=== PATIENT | male | born 1955 | race Caucasian/White ===

== ENCOUNTER 2019-01-30 23:37 | Inpatient (IN) ==
--- NOTE | 2019-01-30 23:55 | Emergency Department Note ---
Disposition Clinical Impression: Acute exacerbation of chronic obstructive airways disease, Hyperammonemia, Pneumonia, Sepsis Fever Qualifiers: Fever type: unspecified Qualified Code(s): R50.9 - Fever, unspecified CHF (congestive heart failure) Qualifiers: Heart failure type: unspecified Heart failure chronicity: acute Qualified Code(s): I50.9 - Heart failure, unspecified Disposition: Still a Patient Condition: Fair Time of Disposition: 04:32 SOB HPI - General Chief Complaint: ED Shortness of Breath/Dyspnea Stated Complaint: sob Time Seen by Provider: 01/30/19 23:46 Source: EMS Mode of arrival: EMS Limitations: no limitations Nursing Notes Reviewed: Yes Vital Signs Reviewed: Yes - History of Present Illness 63-year-old male patient presents to the emergency room for evaluation of Atrial fibrillation with RVR. Upon arrival it was noted that he had a fever of 103 degrees. He states he has been short of breath. He has been a patient at the [facility] and it was necessary to send him here to be further evaluated. Pt Subjective Complaint: shortness of breath, cough Severity: moderate Consistency/Duration: constant Improves with: oxygen, rest, bronchodilators Worsens with: lying flat, exertion Known history of: COPD, diabetes, other (No history of congestive heart failure but there is a family history he states) Associated symptoms: Reports: fever, cough, wheezing, orthopnea, palpitations. Denies: chest pain, sputum production Treatment prior to arrival: oxygen Cough present: Yes Cough Frequency: Intermittent Sputum production: No Sputum Amount: None - Related Data Home oxygen amount: none Home Medications Medication Instructions Recorded Confirmed Allopurinol [Zyloprim] 300 mg PO DAILY 01/31/19 01/31/19 Apixaban [Eliquis] 5 mg PO BID 01/31/19 01/31/19 Budesonide/Formoterol 160/4.5 1 puff IH BID 01/31/19 01/31/19 [Symbicort 160/4.5] Cholecalciferol (Vitamin D3) 2,000 unit PO DAILY 01/31/19 01/31/19 [Vitamin D] Docusate [Colace] 100 mg PO BID PRN 01/31/19 01/31/19 Insulin ASPART [NovoLOG] 2 - 10 unit SQ TIDWM 01/31/19 01/31/19 Insulin Glargine 74 unit SQ DAILY 01/31/19 01/31/19 Lisinopril [Zestril] 10 mg PO DAILY 01/31/19 01/31/19 Porum Oral Soln [Porum] 450 mg PO BID 01/31/19 01/31/19 Loratadine [Allergy Relief] 10 mg PO DAILY 01/31/19 01/31/19 Melatonin 5 mg PO HS PRN 01/31/19 01/31/19 Metoprolol [Lopressor] 12.5 mg PO BID 01/31/19 01/31/19 Montelukast [Singulair] 10 mg PO DAILY 01/31/19 01/31/19 Coulter-3/Dha/Epa/Fish Oil [Sv Fish 2 each PO BID 01/31/19 01/31/19 Oil 1,000 mg Softgel] Paliperidone 156 mg IM Q28D 01/31/19 01/31/19 Pravastatin Sodium 40 mg PO HS 01/31/19 01/31/19 Tiotropium [Spiriva] 18 mcg IH 0700 01/31/19 01/31/19 Zolpidem [Ambien] 5 mg PO HS 01/31/19 01/31/19 dilTIAZem HCl [Cardizem] 180 mg PO QID 01/31/19 01/31/19 hydrOXYzine HCl [Hydroxyzine HCl] 50 mg PO TID PRN 01/31/19 01/31/19 levOCARNitine [Levocarnitine] 660 mg PO BID 01/31/19 01/31/19 Allergies Allergy/AdvReac Type Severity Reaction Status Date / Time No Known Allergies Allergy Verified 01/31/19 00:55 All systems ED: reviewed and negative except as stated. Constitutional: Reports: fever, weakness. Denies: chills, weight change Eyes: Denies: eye pain, eye discharge, vision change ENT ED: Denies: ear pain, throat pain, dental pain, hearing loss, epistaxis, congestion, dysphagia Cardiovascular: Reports: palpitations. Denies: chest pain, dyspnea on exertion, edema, syncope Respiratory: Reports: cough, dyspnea, wheezes. Denies: hemoptysis, stridor Gastrointestinal: Denies: abdominal pain, nausea, vomiting, diarrhea, constipation, hematemesis, melena, hematochezia Genitourinary: Denies: urgency, dysuria, frequency, hematuria Musculoskeletal: Denies: back pain, neck pain, arthralgia, myalgia Integumentary: Denies: rash, abrasion, lesions Neurological: Denies: headache, weakness, numbness, paresthesias, confusion, abnormal gait, vertigo Psychiatric: Denies: anxiety, depression, suicidal thoughts, homicidal thoughts, auditory hallucinations, visual hallucinations Endocrine: Denies: fatigue Hematological/Lymphatic: Denies: easy bleeding, easy bruising Allergic/Immunologic: Denies: facial swelling, urticaria Past Medical History - Past Medical History Attestation: Yes The following information was validated with the patient. Source: patient, old records reviewed, nursing notes reviewed Medical history: Reports: atrial fibrillation, COPD Psychiatric history: Reports: schizophrenia - Social History Smoking Status: Current every day smoker Alcohol use: Reports: none Drug use: Reports: none Physical Exam - General Limitations: no limitations General appearance: alert, in distress (Mild to moderate), obese - Head Head exam: atraumatic, normocephalic, normal inspection - Eye Eye exam: Present: normal appearance, PERRL, EOMI - Expanded Eye Exam Pupils: Left: reactive - ENT ENT exam: normal exam, normal oropharynx, mucous membranes dry, TM's normal bilaterally - Expanded ENT Exam External ear exam: Present: normal external inspection. Absent: auricular hematoma, auricular trauma TM/Canal: Hemotympanum: Negative, Erythema: Negative, Bulging: Negative, Effusion: Negative Mouth exam: Present: normal external inspection Teeth exam: Present: normal inspection Throat exam: Present: normal inspection - Neck Neck exam: Present: normal inspection, full ROM, trachea midline - Chest Chest inspection: Present: normal inspection, symmetric chest wall rise - Respiratory Respiratory exam: Present: respiratory distress, wheezes, other (Rales, bilaterally) - Cardiovascular Cardiovascular exam: Present: irregular rhythm - Abdominal Exam Abdominal exam: Present: soft, Non-Tender, normal bowel sounds. Absent: tenderness, distention, guarding, rebound, rigidity - Extremities Exam Extremities exam: Present: normal inspection, full ROM, normal capillary refill, pedal edema (2+), other (2+ pedal edema). Absent: tenderness - Expanded Upper Extremity Exam Shoulder exam: Present: normal inspection, full ROM. Absent: tenderness, swelling Arm exam: Present: normal inspection, full ROM. Absent: tenderness, swelling Elbow exam: Present: normal inspection, full ROM. Absent: tenderness, swelling Forearm/Wrist exam: Present: normal inspection, full ROM. Absent: tenderness, swelling Hand exam: Present: normal inspection, full ROM. Absent: tenderness, swelling Vascular exam: Normal: capillary refill, radial pulse - Expanded Lower Extremity Exam Hip/Pelvis exam: Present: normal inspection, full ROM. Absent: tenderness Upper leg exam: Present: normal inspection, full ROM. Absent: tenderness Knee exam: Present: normal inspection, full ROM. Absent: tenderness Lower leg exam: Present: normal inspection, full ROM. Absent: tenderness, Homans' sign Ankle exam: Present: normal inspection, full ROM. Absent: tenderness Foot/toe exam: Present: normal inspection, full ROM. Absent: tenderness Neurovascular/Tendon exam: Present: normal capillary refill. Absent: pulse deficit, motor deficit, sensory deficit, tendon deficit - Back Exam Back exam: Present: normal inspection, full ROM. Absent: tenderness, CVA tenderness (R), CVA tenderness (L) - Neurological Exam Neurological exam: Present: alert, oriented X3, CN II-XII intact - Expanded Neurological Exam Patient oriented to: Present: person, place, time Coma Scale Eye Opening: Spontaneous Coma Scale Motor Response: Obeys Commands Coma Scale Verbal Response: Oriented Coma Scale Total: 15 - Psychiatric Psychiatric exam: Present: normal affect, normal mood - Skin Skin exam: Present: warm, dry, intact, normal color Course Course Narrative: Placed in examination room. H&P obtained. Nurse notes reviewed. Patient has been sepsis criteria. Patient is in atrial fibrillation with RVR. However, he does have a fever of 103 I will treat his fever first provide him with normal saline bolus based on his ideal body weight of 89 kg Patient will be given a total of 3 L. An initial 2000 mL bolus followed by 126 mL an hour drip. Patient was given 1 g of Tylenol orally. I we will reassess his heart rate at that time decide whether or not to give Cardizem IV. - Reevaluation(s) Reevaluation #1: Patient is feeling some better. However, I feel he is having increased work of breathing. I have treated his fever and initially started some IV fluid as he looked clinically dry however I feel, reexamination he does have 2-3+ pitting edema there are some rales now present that were not audible prior secondary to the wheezing. I will start him on BiPAP and this is to help with the congestive heart failure. A Pang was inserted. This was inserted for strict I's and O's. Patient also had an ammonia level obtained. Chest x-ray was reviewed which did show no obvious infiltrate but did show some cephalization of flow consistent with congestive heart failure. However, [facility] is not currently taking any diuretics. Zosyn and vancomycin were started secondary to systemic inflammatory response syndrome. Time: 01:15 Reevaluation #2: Patient has continued to diurese. BiPAP has helped him. Cardizem was given and his heart rate is slowly improving as well as his blood pressure has continued to improve. His blood pressure did drop down to 99 systolic however I feel this is secondary to atrial fibrillation with RVR. Patient was given Zosyn and vancomycin. CTA is pending. Time: 02:29 Reevaluation #3: Pt declined a central line @ 0407 I will continue to monitor his Blood Pressure. Time: 04:07 - Consultations Consultation #1: I spoke to the hospitalist Dr. Amador When I had initialy paged the patient's blood pressure was 105 systolic. However, during the interim his BP has waxed and waned between 95 systolic and 105 Pt did have a reading that was low @ 81 systolic. We had decided to stop the Cardizem and switched to Amiodorone. Prior to stopping Cardizem his BP improved to 97 systolic and on manual it was 105 systolic. Pt does take Porum but was confirmed that he only had one dose, as it was just started. Therefore, Amiodorone was started (bolus and gtt). Time: 03:47 Consultation #2: Hospitalist was agreeable to admit the patient to the hospital. Patient was admitted to the ICU. Once again the patient refused the BiPAP here and one to taken off. However he did tolerate it well and I feel that did improve his clinical condition. Cardizem could be affecting his blood pressure some. After it was stopped and switched him to room his blood pressure did improve however he was given a 1000 mL bolus in addition to the original 1000 mL bolus. We provided him with judicious hydration but very cautious at same time secondary to his volume status. I did speak with the patient on multiple occasions he stated his legs and been swollen like this for a long long time and is very possible this could be secondary to diabetes (as patient felt that it could be as he was told this in the past. ) but I feel that it more than that. Time: 04:03 Vital Signs Temperature 103.2 F H 01/30/19 23:44 Pulse Rate 145 01/30/19 23:44 Respiratory Rate 16 01/30/19 23:44 Blood Pressure 123/97 01/30/19 23:44 O2 Sat by Pulse Oximetry 97 01/30/19 23:44 Temperature 98.9 F 01/31/19 03:30 Pulse Rate 101 01/31/19 05:15 Respiratory Rate 22 01/31/19 05:15 Blood Pressure 126/66 01/31/19 05:15 O2 Sat by Pulse Oximetry 97 01/31/19 05:15 Oxygen Delivery Oxygen Delivery Nasal Cannula Shortness of Breath/Dyspnea - MDM Narrative Medical decision making narrative: Patient's blood pressure did improve into the 120 systolic range. He remained awake alert and oriented. Patient was admitted to the ICU. They will be continually monitored. If required pressors can be given specifically levophed for 24 hours. - Medical Records Medical records reviewed: Yes I reviewed the patient's medical records. - Lab Data Lab results reviewed: Yes I reviewed the patient's lab results. Result diagrams: 01/30/19 23:55 01/30/19 00:00 Lab Results 01/30/19 01/30/19 01/30/19 Range/Units 00:00 00:00 00:00 WBC (4.3-11.1) K/mcL RBC (4.19-5.50) M/mcL Hgb (12.9-16.9) g/dL Hct (37.5-50.1) % MCV (83.0-100.0) fL MCH (28.0-33.3) pg MCHC (31.6-35.5) g/dL RDW (11.5-14.5) % Plt Count (140-400) K/mcL MPV (9.4-12.4) fL Immature Gran % (0-4) % Seg Neutrophils % % Lymphocytes % % Monocytes % % Eosinophils % % Basophils % % Neutrophils # (1.6-8.9) K/mcL Lymphocytes # (0.6-4.6) K/mcL Monocytes # (0.0-1.3) K/mcL Eosinophils # (0.0-0.6) K/mcL Basophils # (0.0-0.2) K/mcL Platelet Estimate (Normal) Immature Plt Fraction (1.1-6.1) % PT 12.5 H (9.4-12.1) Seconds INR 1.1 APTT 31.7 (26.0-36.0) Seconds Sample Site ABG pH (7.32-7.45) pH Units ABG pCO2 (35-45) mmHg ABG pO2 (85-104) mmHg ABG HCO3 (21-27) mEq/L ABG Total CO2 (20-26) mEq/L ABG O2 Saturation (95-98) % ABG Base Excess (-2 to 3) mEq/L Yunier Test O2 Delivery Device Inspired O2 (1-15=lpm [id number]=%) Sodium 134 L (136-145) mEq/L Potassium 5.2 H (3.5-5.1) mEq/L Chloride 100 (98-107) mEq/L Carbon Dioxide 24 (23-29) mEq/L BUN 21 (8-23) mg/dL Creatinine 1.21 (0.70-1.30) mg/dL Est GFR ( Amer) > 60 (> 60) Est GFR (Non-Af Amer) > 60 (> 60) BUN/Creatinine Ratio 17 (6-26) Glucose 265 H (70-105) mg/dL Calculated Osmolality 290 (280-300) Lactic Acid (0.5-2.2) mmol/L Calcium 9.9 (8.6-10.3) mg/dL Phosphorus 2.2 L (2.7-4.5) mg/dL Magnesium 1.7 (1.6-2.6) mg/dL Total Bilirubin 0.7 (0.3-1.0) mg/dL Direct Bilirubin 0.2 (0.0-0.2) mg/dL Indirect Bilirubin 0.5 (0.0-1.2) mg/dL AST 14 (13-39) Units/L ALT 14 (7-52) Units/L Alkaline Phosphatase 57 (34-104) Units/L Ammonia (16-53) mcmol/L Troponin I < 0.03 (< 0.04) ng/mL B-Natriuretic Peptide 40 (Less than 100) pg/mL Serum Total Protein 7.1 (6.4-8.9) g/dL Albumin 4.4 (3.5-5.7) g/dL Globulin 2.7 (2.4-3.5) g/dL Albumin/Globulin Ratio 1.6 (1.1-2.2) Urine Color (Yellow) Urine Clarity (Clear) Urine pH (5.0-8.0) pH Units Ur Specific [place] (1.010-1.025) Urine Protein (Neg-Trace) mg/dL Urine Glucose (UA) (Normal) mg/dL Urine Ketones (Negative) mg/dL Urine Blood (Negative) Urine Nitrite (Negative) Urine Bilirubin (Negative) Urine Urobilinogen (Normal) mg/dL Ur Leukocyte Esterase (Negative) Ur Culture Indicated? (NO) Valproic Acid (50-100) mcg/mL Porum (0.6-1.2) mEq/L 01/30/19 01/31/19 01/31/19 Range/Units 23:55 00:54 01:00 WBC 12.4 H (4.3-11.1) K/mcL RBC 5.05 (4.19-5.50) M/mcL Hgb 15.9 (12.9-16.9) g/dL Hct 46.5 (37.5-50.1) % MCV 92.1 (83.0-100.0) fL MCH 31.5 (28.0-33.3) pg MCHC 34.2 (31.6-35.5) g/dL RDW 13.2 (11.5-14.5) % Plt Count 96 L (140-400) K/mcL MPV 8.9 L (9.4-12.4) fL Immature Gran % 0.4 (0-4) % Seg Neutrophils % 82.7 % Lymphocytes % 8.2 % Monocytes % 8.3 % Eosinophils % 0.2 % Basophils % 0.2 % Neutrophils # 10.3 H (1.6-8.9) K/mcL Lymphocytes # 1.0 (0.6-4.6) K/mcL Monocytes # 1.0 (0.0-1.3) K/mcL Eosinophils # 0.0 (0.0-0.6) K/mcL Basophils # 0.0 (0.0-0.2) K/mcL Platelet Estimate Decreased L (Normal) Immature Plt Fraction 1.6 (1.1-6.1) % PT (9.4-12.1) Seconds INR APTT (26.0-36.0) Seconds Sample Site R Radial ABG pH 7.43 (7.32-7.45) pH Units ABG pCO2 38 (35-45) mmHg ABG pO2 74 L (85-104) mmHg ABG HCO3 25 (21-27) mEq/L ABG Total CO2 26 (20-26) mEq/L ABG O2 Saturation 95 (95-98) % ABG Base Excess 1 (-2 to 3) mEq/L Yunier Test N/A O2 Delivery Device Cannula Inspired O2 3.0 (1-15=lpm [id number]=%) Sodium (136-145) mEq/L Potassium (3.5-5.1) mEq/L Chloride (98-107) mEq/L Carbon Dioxide (23-29) mEq/L BUN (8-23) mg/dL Creatinine (0.70-1.30) mg/dL Est GFR ( Amer) (> 60) Est GFR (Non-Af Amer) (> 60) BUN/Creatinine Ratio (6-26) Glucose (70-105) mg/dL Calculated Osmolality (280-300) Lactic Acid (0.5-2.2) mmol/L Calcium (8.6-10.3) mg/dL Phosphorus (2.7-4.5) mg/dL Magnesium (1.6-2.6) mg/dL Total Bilirubin (0.3-1.0) mg/dL Direct Bilirubin (0.0-0.2) mg/dL Indirect Bilirubin (0.0-1.2) mg/dL AST (13-39) Units/L ALT (7-52) Units/L Alkaline Phosphatase (34-104) Units/L Ammonia (16-53) mcmol/L Troponin I (< 0.04) ng/mL B-Natriuretic Peptide (Less than 100) pg/mL Serum Total Protein (6.4-8.9) g/dL Albumin (3.5-5.7) g/dL Globulin (2.4-3.5) g/dL Albumin/Globulin Ratio (1.1-2.2) Urine Color Yellow (Yellow) Urine Clarity Clear (Clear) Urine pH 7.0 (5.0-8.0) pH Units Ur Specific [place] 1.017 (1.010-1.025) Urine Protein Trace (Neg-Trace) mg/dL Urine Glucose (UA) 100 H (Normal) mg/dL Urine Ketones Trace H (Negative) mg/dL Urine Blood Negative (Negative) Urine Nitrite Negative (Negative) Urine Bilirubin Negative (Negative) Urine Urobilinogen Normal (Normal) mg/dL Ur Leukocyte Esterase Negative (Negative) Ur Culture Indicated? NO (NO) Valproic Acid (50-100) mcg/mL Porum (0.6-1.2) mEq/L 01/31/19 01/31/19 01/31/19 Range/Units 01:13 01:13 01:13 WBC (4.3-11.1) K/mcL RBC (4.19-5.50) M/mcL Hgb (12.9-16.9) g/dL Hct (37.5-50.1) % MCV (83.0-100.0) fL MCH (28.0-33.3) pg MCHC (31.6-35.5) g/dL RDW (11.5-14.5) % Plt Count (140-400) K/mcL MPV (9.4-12.4) fL Immature Gran % (0-4) % Seg Neutrophils % % Lymphocytes % % Monocytes % % Eosinophils % % Basophils % % Neutrophils # (1.6-8.9) K/mcL Lymphocytes # (0.6-4.6) K/mcL Monocytes # (0.0-1.3) K/mcL Eosinophils # (0.0-0.6) K/mcL Basophils # (0.0-0.2) K/mcL Platelet Estimate (Normal) Immature Plt Fraction (1.1-6.1) % PT (9.4-12.1) Seconds INR APTT (26.0-36.0) Seconds Sample Site ABG pH (7.32-7.45) pH Units ABG pCO2 (35-45) mmHg ABG pO2 (85-104) mmHg ABG HCO3 (21-27) mEq/L ABG Total CO2 (20-26) mEq/L ABG O2 Saturation (95-98) % ABG Base Excess (-2 to 3) mEq/L Yunier Test O2 Delivery Device Inspired O2 (1-15=lpm [id number]=%) Sodium (136-145) mEq/L Potassium (3.5-5.1) mEq/L Chloride (98-107) mEq/L Carbon Dioxide (23-29) mEq/L BUN (8-23) mg/dL Creatinine (0.70-1.30) mg/dL Est GFR ( Amer) (> 60) Est GFR (Non-Af Amer) (> 60) BUN/Creatinine Ratio (6-26) Glucose (70-105) mg/dL Calculated Osmolality (280-300) Lactic Acid 2.7 H (0.5-2.2) mmol/L Calcium (8.6-10.3) mg/dL Phosphorus (2.7-4.5) mg/dL Magnesium (1.6-2.6) mg/dL Total Bilirubin (0.3-1.0) mg/dL Direct Bilirubin (0.0-0.2) mg/dL Indirect Bilirubin (0.0-1.2) mg/dL AST (13-39) Units/L ALT (7-52) Units/L Alkaline Phosphatase (34-104) Units/L Ammonia 65 H (16-53) mcmol/L Troponin I (< 0.04) ng/mL B-Natriuretic Peptide (Less than 100) pg/mL Serum Total Protein (6.4-8.9) g/dL Albumin (3.5-5.7) g/dL Globulin (2.4-3.5) g/dL Albumin/Globulin Ratio (1.1-2.2) Urine Color (Yellow) Urine Clarity (Clear) Urine pH (5.0-8.0) pH Units Ur Specific [place] (1.010-1.025) Urine Protein (Neg-Trace) mg/dL Urine Glucose (UA) (Normal) mg/dL Urine Ketones (Negative) mg/dL Urine Blood (Negative) Urine Nitrite (Negative) Urine Bilirubin (Negative) Urine Urobilinogen (Normal) mg/dL Ur Leukocyte Esterase (Negative) Ur Culture Indicated? (NO) Valproic Acid (50-100) mcg/mL Porum 0.6 (0.6-1.2) mEq/L 01/31/19 Range/Units 01:13 WBC (4.3-11.1) K/mcL RBC (4.19-5.50) M/mcL Hgb (12.9-16.9) g/dL Hct (37.5-50.1) % MCV (83.0-100.0) fL MCH (28.0-33.3) pg MCHC (31.6-35.5) g/dL RDW (11.5-14.5) % Plt Count (140-400) K/mcL MPV (9.4-12.4) fL Immature Gran % (0-4) % Seg Neutrophils % % Lymphocytes % % Monocytes % % Eosinophils % % Basophils % % Neutrophils # (1.6-8.9) K/mcL Lymphocytes # (0.6-4.6) K/mcL Monocytes # (0.0-1.3) K/mcL Eosinophils # (0.0-0.6) K/mcL Basophils # (0.0-0.2) K/mcL Platelet Estimate (Normal) Immature Plt Fraction (1.1-6.1) % PT (9.4-12.1) Seconds INR APTT (26.0-36.0) Seconds Sample Site ABG pH (7.32-7.45) pH Units ABG pCO2 (35-45) mmHg ABG pO2 (85-104) mmHg ABG HCO3 (21-27) mEq/L ABG Total CO2 (20-26) mEq/L ABG O2 Saturation (95-98) % ABG Base Excess (-2 to 3) mEq/L Yunier Test O2 Delivery Device Inspired O2 (1-15=lpm [id number]=%) Sodium (136-145) mEq/L Potassium (3.5-5.1) mEq/L Chloride (98-107) mEq/L Carbon Dioxide (23-29) mEq/L BUN (8-23) mg/dL Creatinine (0.70-1.30) mg/dL Est GFR ( Amer) (> 60) Est GFR (Non-Af Amer) (> 60) BUN/Creatinine Ratio (6-26) Glucose (70-105) mg/dL Calculated Osmolality (280-300) Lactic Acid (0.5-2.2) mmol/L Calcium (8.6-10.3) mg/dL Phosphorus (2.7-4.5) mg/dL Magnesium (1.6-2.6) mg/dL Total Bilirubin (0.3-1.0) mg/dL Direct Bilirubin (0.0-0.2) mg/dL Indirect Bilirubin (0.0-1.2) mg/dL AST (13-39) Units/L ALT (7-52) Units/L Alkaline Phosphatase (34-104) Units/L Ammonia (16-53) mcmol/L Troponin I (< 0.04) ng/mL B-Natriuretic Peptide (Less than 100) pg/mL Serum Total Protein (6.4-8.9) g/dL Albumin (3.5-5.7) g/dL Globulin (2.4-3.5) g/dL Albumin/Globulin Ratio (1.1-2.2) Urine Color (Yellow) Urine Clarity (Clear) Urine pH (5.0-8.0) pH Units Ur Specific [place] (1.010-1.025) Urine Protein (Neg-Trace) mg/dL Urine Glucose (UA) (Normal) mg/dL Urine Ketones (Negative) mg/dL Urine Blood (Negative) Urine Nitrite (Negative) Urine Bilirubin (Negative) Urine Urobilinogen (Normal) mg/dL Ur Leukocyte Esterase (Negative) Ur Culture Indicated? (NO) Valproic Acid 91 (50-100) mcg/mL Porum (0.6-1.2) mEq/L - Radiology Data Radiology results reviewed: Yes I reviewed the patient's radiology results. - EKG Data EKG attestation: Yes I reviewed and interpreted this EKG. EKG results narrative: EKG is reviewed and interpreted by me shows an atrial fibrillation with rapid ventricular response at 153 bpm, left axis, normal QRS duration, no acute ST elevations. Critical Care Time Critical Care Time: Yes Total Critical Care Time: 45 Attestation: The high probability of a clinically significant, sudden or life threatening deterioration of the patient's condition required my full and direct attention, intervention and personal management.
[2019-01-30] MEDS ORDERED: Levalbuterol Neb 1.25 MG/3 ML IH STA (23:58)
[2019-01-31] MEDS: 0.9 % Sodium Chloride 1,000 ML IVC SCH ×2 (00:42→02:51)
[2019-01-31 00:43] LABS: Basophils % 0.2 %; Eosinophils % 0.2 %; Mean Corpuscular Volume 92.1 fL (83.0-100.0)
[2019-01-31 00:45] LABS: Hematocrit 46.5 % (37.5-50.1); Hemoglobin 15.9 g/dL (12.9-16.9); Immature Granulocytes % 0.4 % (0-4); Immature Platelets 1.6 % (1.1-6.1); Lymphocytes % 8.2 %; Mean Corpuscular HGB Conc 34.2 g/dL (31.6-35.5); Mean Corpuscular Hemoglobin 31.5 pg (28.0-33.3); Mean Platelet Volume 8.9 fL (9.4-12.4); Monocytes % 8.3 %; Red Blood Count 5.05 M/mcL (4.19-5.50); Red Cell Distribution Width 13.2 % (11.5-14.5); Segmented Neutrophils % 82.7 %; White Blood Count 12.4 K/mcL (4.3-11.1)
[2019-01-31 00:49] LABS: Neutrophils # 10.3 K/mcL (1.6-8.9); Platelet Count 96 K/mcL (140-400)
[2019-01-31 00:57] LABS: ABG Base Excess 1 mEq/L (-2 to 3); ABG HCO3 25 mEq/L (21-27); ABG Oxygen Saturation 95 % (95-98); ABG PCO2 38 mmHg (35-45); ABG PH 7.43 pH Units (7.32-7.45); ABG PO2 74 mmHg (85-104); ABG TCO2 26 mEq/L (20-26)
[2019-01-31 01:06] LABS: Alanine Aminotransferase 14 Units/L (7-52); Albumin 4.4 g/dL (3.5-5.7); Albumin/Globulin Ratio 1.6 (1.1-2.2); Alkaline Phosphatase 57 Units/L (34-104); Aspartate Amino Transferase 14 Units/L (13-39); BUN/Creatinine Ratio 17 (6-26); Bilirubin,Direct 0.2 mg/dL (0.0-0.2); Bilirubin,Indirect 0.5 mg/dL (0.0-1.2); Bilirubin,Total 0.7 mg/dL (0.3-1.0); Blood Urea Nitrogen 21 mg/dL (8-23); Calcium 9.9 mg/dL (8.6-10.3); Carbon Dioxide 24 mEq/L (23-29); Chloride 100 mEq/L (98-107); Globulin 2.7 g/dL (2.4-3.5); Glucose 265 mg/dL (70-105); Magnesium 1.7 mg/dL (1.6-2.6); Osmolality,Calculated 290 (280-300); Phosphorous 2.2 mg/dL (2.7-4.5); Potassium 5.2 mEq/L (3.5-5.1); Sodium 134 mEq/L (136-145); Total Protein 7.1 g/dL (6.4-8.9); Troponin I < 0.03 ng/mL (< 0.04); eGFR For African Americans > 60 (> 60); eGFR For Non-African Americans > 60 (> 60)
[2019-01-31 01:14] LABS: INR 1.1; Prothrombin Time 12.5 Seconds (9.4-12.1)
[2019-01-31 01:15] LABS: Bilirubin,Urine Negative (Negative); Blood,Urine Negative (Negative); Clarity,Urine Clear (Clear); Color,Urine Yellow (Yellow); Glucose,Urine (UA) 100 mg/dL (Normal); Ketones,Urine Trace mg/dL (Negative); Leukocyte Esterase,Urine Negative (Negative); Nitrite,Urine Negative (Negative); Protein,Urine Trace mg/dL (Neg-Trace); Specific Gravity,Urine 1.017 (1.010-1.025); Urobilinogen,Urine Normal (Normal)
[2019-01-31 01:17] LABS: Activated Partial Thrombo Time 31.7 Seconds (26.0-36.0)
[2019-01-31] MEDS ORDERED: Piperacillin/Tazobactam 3.375 GM in 0.9 % Sodium Chloride Mini Bag 100 ML IVPB ONE (01:27)
[2019-01-31] MEDS ORDERED: Isovue-370 500 ML BOTTLE IVP ONE (01:31)
[2019-01-31 01:36] LABS: Platelet Estimate Decreased (Normal)
[2019-01-31] MEDS ORDERED: methylPREDNISolone 125 MG/2 ML VIAL IVP ONE (02:46)
[2019-01-31] MEDS ORDERED: 0.9 % Sodium Chloride 1,000 ML IVC ONE (03:29)
[2019-01-31] MEDS ORDERED: Amiodarone Premix 150 MG/100 ML BAG IVPB ONE (03:49)
[2019-01-31] MEDS ORDERED: Levalbuterol Neb 1.25 MG/3 ML IH STA (04:08)
[2019-01-31] MEDS ORDERED: Amiodarone Premix 360 MG/200 ML BAG IVC ONE (04:22)
[2019-01-31] MEDS ORDERED: Amiodarone Premix 360 MG/200 ML BAG IVC SCH ×2 (04:30→11:14)
[2019-01-31] MEDS ORDERED: Lactulose Oral Soln 20 GM/30 ML UDC PO ONE (05:00)
[2019-01-31] MEDS ORDERED: Naloxone 0.4 MG/ML INJ IVP PRN ×2 (05:03→11:14)
--- NOTE | 2019-01-31 05:05 | Internal Med History&Physical ---
<Lazaro Cherry - Last Filed: 01/31/19 05:36> Date of Encounter: 01/31/19 Time of Encounter: 04:50 Internal Medicine - H&P: HPI Admitted From: Home History of present illness: Mr. Gunderson is a 63 year old male past medical history of COPD, diabetes, hyper tension, atrial fibrillation, on metoprolol, Eliquis, lisinopril, insulin, diltiazem, and lithium, presenting to the [facility] ED for atrial or fibrillation with rapid ventricular response. Patient was also noted in the ED to be febrile to 103 degrees, he is medically to dyspnea, orthopnea and palpitations as well as nonproductive cough. Patient denies chest pain. Patient had appears to history of atrial fibrillation with RVR, is currently meeting sepsis criteria was given initial fluid bolus of 2 L, given Tylenol by mouth for fever and started on diltiazem drip. Patient was only minimally responsive to this medication as he was transferred to amiodarone, patient has r eceived 2 separate level albuterol nebulizers as well as steroids in the ED he was started on vancomycin and Zosyn due to sepsis. Patient was put on BiPAP as tolerated it poorly asked for the BiPAP to be removed. Patient started to have mildly elevated white count 12.4, mild hyponatremia at 134, mild hyperkalemia 5.2, glucose of 265, elevated lactic acid 2.7, hypophosphatemia 2.2, and hyperammonemia 65. Patient's vitals are currently stable with a heart rate of 101, borderline tachypnea at 22, BP of 126/66 saturating at 97% on 3 L via nasal cannula. Patient is currently refusing BiPAP and has refused central line after being offered by emergency attending physician in the ED. Assessment and plan: Atrial fibrillation with rapid ventricular response: Continue amiodarone drip Guarded IV fluid administration Echocardiogram Consult to cardiology Sepsis: Likely 2/2 pneumonia Patient received 2 L IV fluid administration Continue vancomycin/Zosyn Mildly elevated white count 12.4 Lactic acid initially 2.7-Time lactic acid Cautious fluid administration the setting of CHF Blood cultures pending. Hyperkalemia: Potassium at 5.2 Patient has received 2 nebulizers of levalbuterol Recheck BMP at 0600 hours Hyperglycemia: Low-dose sliding scale insulin regimen. Hyperammonemia: Lactulose Hypophosphatemia Phosphate level of 2.2 Replace with sodium phosphate DVT prophylaxis: Home dose Eliquis 5 mg by mouth twice a day Past Med Surg Social Fam HX - Past Medical History Medical history: atrial fibrillation, COPD Psychiatric history: schizophrenia - Social History Smoking Status: Current every day smoker Alcohol use: none Drug use: none Internal Medicine - H&P: Meds Allopurinol [Zyloprim] 300 mg PO DAILY 01/31/19 [History] Apixaban [Eliquis] 5 mg PO BID 01/31/19 [History] Budesonide/Formoterol 160/4.5 [Symbicort 160/4.5] 1 puff IH BID 01/31/19 [History] Cholecalciferol (Vitamin D3) [Vitamin D] 2,000 unit PO DAILY 01/31/19 [History] Docusate [Colace] 100 mg PO BID PRN 01/31/19 [History] Insulin ASPART [NovoLOG] 2 - 10 unit SQ TIDWM 01/31/19 [History] Insulin Glargine 74 unit SQ DAILY 01/31/19 [History] Lisinopril [Zestril] 10 mg PO DAILY 01/31/19 [History] [place] Oral Soln [[place]] 450 mg PO BID 01/31/19 [History] Loratadine [Allergy Relief] 10 mg PO DAILY 01/31/19 [History] Melatonin 5 mg PO HS PRN 01/31/19 [History] Metoprolol [Lopressor] 12.5 mg PO BID 01/31/19 [History] Montelukast [Singulair] 10 mg PO DAILY 01/31/19 [History] [place]-3/Dha/Epa/Fish Oil [Sv Fish Oil 1,000 mg Softgel] 2 each PO BID 01/31/19 [History] Paliperidone 156 mg IM Q28D 01/31/19 [History] Pravastatin Sodium 40 mg PO HS 01/31/19 [History] Tiotropium [Spiriva] 18 mcg IH 0700 01/31/19 [History] Zolpidem [Ambien] 5 mg PO HS 01/31/19 [History] dilTIAZem HCl [Cardizem] 180 mg PO QID 01/31/19 [History] hydrOXYzine HCl [Hydroxyzine HCl] 50 mg PO TID PRN 01/31/19 [History] levOCARNitine [Levocarnitine] 660 mg PO BID 01/31/19 [History] Allergy/AdvReac Type Severity Reaction Status Date / Time No Known Allergies Allergy Verified 01/31/19 00:55 All Systems PM: A 10-system review of systems was performed and is negative for pertinent findings except as documented above in the HPI. - Constitutional Constitutional: excessive sweating, fatigue, fever(s), lethargy, malaise, weakness - Cardiovascular Cardiovascular ROS IM: edema, no chest pain, no dyspnea, no lightheadedness, no syncope - Respiratory Respiratory: no dyspnea - Gastrointestinal Gastrointestinal: no abdominal pain, no nausea, no vomiting - Neurological Neurological ROS: weakness, no dizziness - Constitutional Vitals: Temp Pulse Resp BP Pulse Ox 98.9 F 102 22 113/75 98 01/31/19 03:30 01/31/19 04:45 01/31/19 04:45 01/31/19 04:45 01/31/19 04:45 General appearance: Present: disheveled, morbidly obese Exam: Upon my initial examination the patient is lying in the hospital bed with a fan on his face he is mildly diaphoretic and states that he feels that he is sweating, he is initially sleeping when I enter the room but is arousable to verbal stimuli. Patient appears to be awake and alert to his surroundings he is engageable to conversation and answers most questions appropriately, however it is noted that while the patient first appears to understand that he needs admission to the hospital for further management of CHF and sepsis, when asked if he has any questions he states that he would like to go home at 7:00 because he has to pick his daughter is at before they go to work. The patient does not appear to have consistent thought process and is noted be conversationally dyspneic although he states that he is not having any trouble breathing and denies all other review of systems questions. Patient is noted to be morbidly obese and disheveled, there is tobacco staining on his fingers and dye. C ardiopulmonary auscultation however is unremarkable, abdomen is soft nontender nondistended, there are no external signs of trauma peripheral pulses are intact in the distal extremities, there is significant notable 3+ pitting edema bilateral lower extremities which patient states is chronic. He has no other concerns or complaints at this time. - Head Head exam: Present: atraumatic, normal inspection - Respiratory Respiratory exam: Present: accessory muscle use, CTAB, prolonged expiratory phase - Cardiovascular Cardiovascular exam: Present: RRR, +S1, +S2. Absent: clicks, diastolic murmur, gallop, JVD, rubs, +S3, +S4, systolic murmur - GI/Abdominal GI/Abdominal exam: Present: normal bowel sounds, soft, no peritoneal signs. Absent: distended, firm, guarding, rebound, rigid, tenderness - Extremities Exam Extremities exam: Present: pedal edema (3+ pitting bilateral lower extremity edema). Absent: cyanotic, tenderness - Neurological Exam Neurological exam: Present: alert, no focal deficits. Absent: facial droop, speech deficit - Skin Skin exam: Present: diaphoretic, intact, normal color, warm. Absent: cyanosis, erythema Internal Med - H&P Results - Labs CBC & Chem 7: 01/30/19 23:55 01/30/19 00:00 Labs: Short CBC 01/30/19 Range/Units 23:55 WBC 12.4 H (4.3-11.1) K/mcL Hgb 15.9 (12.9-16.9) g/dL Hct 46.5 (37.5-50.1) % Plt Count 96 L (140-400) K/mcL Neutrophils # 10.3 H (1.6-8.9) K/mcL BMP 01/30/19 00:00 Sodium 134 L Potassium 5.2 H Chloride 100 Carbon Dioxide 24 BUN 21 Creatinine 1.21 Glucose 265 H Calcium 9.9 Cardiac Enzymes 01/30/19 Range/Units 00:00 Troponin I < 0.03 (< 0.04) ng/mL Liver Function 01/30/19 Range/Units 00:00 Total Bilirubin 0.7 (0.3-1.0) mg/dL Direct Bilirubin 0.2 (0.0-0.2) mg/dL AST 14 (13-39) Units/L ALT 14 (7-52) Units/L Alkaline Phosphatase 57 (34-104) Units/L Albumin 4.4 (3.5-5.7) g/dL Urine 01/31/19 Range/Units 01:00 Urine Color Yellow (Yellow) Urine Clarity Clear (Clear) Urine pH 7.0 (5.0-8.0) pH Units Ur Specific [place] 1.017 (1.010-1.025) Urine Protein Trace (Neg-Trace) mg/dL Urine Glucose (UA) 100 H (Normal) mg/dL - ABG Interpretation ABG results: 01/31/19 00:54 ABG pH 7.43 ABG pCO2 38 ABG pO2 74 L ABG HCO3 25 ABG Total CO2 26 ABG O2 Saturation 95 ABG Base Excess 1 - Impressions ITS Impressions Chest X-Ray 01/31/19 00:38 IMPRESSION: Negative limited low lung volume portable examination. D/ / Carmelo Flores MD / Carmelo Flores MD Interpreting Provider: Carmelo Flores MD Chest CTA 01/31/19 02:29 IMPRESSION: Negative for acute pulmonary embolism. Left lower lobe airspace disease, most suspicious for aspiration sequela given trace hyper airways secretions. Pneumonia is a differential consideration. Mild mediastinal and hilar lymphadenopathy is presumably reactive. Heterogeneous enlarged thyroid gland. Recommend nonemergent follow-up thyroid ultrasound, unless already performed elsewhere. D/ / Sudhir Zarate / Sudhir Zarate Interpreting Provider: Sudhir Zarate - Time Spent With Patient Total time spent is greater than 50% in coordination of care (as documented) at patient's floor/unit and/or counseling patient: <Hema Shell D - Last Filed: 01/31/19 08:19> Date of Encounter: 01/31/19 Internal Medicine - H&P: HPI History of present illness: Mr. Gunderson is a 63 year old male All Systems PM: A 10-system review of systems was performed and is negative for pertinent findings except as documented above in the HPI. - Constitutional Vitals: Temp Pulse Resp BP Pulse Ox 98.7 F 115 21 134/98 94 01/31/19 07:47 01/31/19 08:00 01/31/19 08:00 01/31/19 08:00 01/31/19 08:00 Internal Med - H&P Results - Labs CBC & Chem 7: 01/31/19 05:54 01/31/19 06:59 Labs: Short CBC 01/30/19 01/31/19 Range/Units 23:55 05:54 WBC 12.4 H 13.5 H (4.3-11.1) K/mcL Hgb 15.9 15.2 (12.9-16.9) g/dL Hct 46.5 45.4 (37.5-50.1) % Plt Count 96 L 87 L (140-400) K/mcL Neutrophils # 10.3 H 11.8 H (1.6-8.9) K/mcL BMP 01/30/19 01/31/19 00:00 06:59 Sodium 134 L 135 L Potassium 5.2 H 4.8 Chloride 100 103 Carbon Dioxide 24 24 BUN 21 20 Creatinine 1.21 1.09 Glucose 265 H 309 H Calcium 9.9 9.6 Cardiac Enzymes 01/30/19 Range/Units 00:00 Troponin I < 0.03 (< 0.04) ng/mL Liver Function 01/30/19 Range/Units 00:00 Total Bilirubin 0.7 (0.3-1.0) mg/dL Direct Bilirubin 0.2 (0.0-0.2) mg/dL AST 14 (13-39) Units/L ALT 14 (7-52) Units/L Alkaline Phosphatase 57 (34-104) Units/L Albumin 4.4 (3.5-5.7) g/dL Urine 01/31/19 Range/Units 01:00 Urine Color Yellow (Yellow) Urine Clarity Clear (Clear) Urine pH 7.0 (5.0-8.0) pH Units Ur Specific [place] 1.017 (1.010-1.025) Urine Protein Trace (Neg-Trace) mg/dL Urine Glucose (UA) 100 H (Normal) mg/dL - ABG Interpretation ABG results: 01/31/19 00:54 ABG pH 7.43 ABG pCO2 38 ABG pO2 74 L ABG HCO3 25 ABG Total CO2 26 ABG O2 Saturation 95 ABG Base Excess 1 - Impressions ITS Impressions Chest X-Ray 01/31/19 00:38 IMPRESSION: Negative limited low lung volume portable examination. D/ / Carmelo Flores MD / Carmelo Flores MD Interpreting Provider: Carmelo Flores MD Chest CTA 01/31/19 02:29 IMPRESSION: Negative for acute pulmonary embolism. Left lower lobe airspace disease, most suspicious for aspiration sequela given trace hyper airways secretions. Pneumonia is a differential consideration. Mild mediastinal and hilar lymphadenopathy is presumably reactive. Heterogeneous enlarged thyroid gland. Recommend nonemergent follow-up thyroid ultrasound, unless already performed elsewhere. D/ / Sudhir Zarate / Sudhir Zarate Interpreting Provider: Sudhir Zarate - Time Spent With Patient Total time spent is greater than 50% in coordination of care (as documented) at patient's floor/unit and/or counseling patient: - Attending Attestation I saw and evaluated the patient. I reviewed the residents note, performed my own physical examination and agree with findings and plan as documented in the residents note. Patient seen and examined on 01/31/19 at 620am. Patient presented with atrial fibrillation, possible pneumonia. History of diabetes and atrial fibrillation on eliquis. In ICU due to starting amiodarone. Will continue to monitor. Blood pressures initially low in ER but improved after fluid boluses. Echo in the morning, cardiology consultation. Continue IV antibiotics for pneumonia.
[2019-01-31] MEDS ORDERED: *HR* Dextrose 50 % in Water (Syg) 50 ML SYRINGE IVP PRN ×3 (05:33→11:14)
[2019-01-31] MEDS ORDERED: D5% in Water 1,000 ML IVC PRN ×3 (05:33→11:14)
[2019-01-31] MEDS ORDERED: Dextrose Gel 15 GM/37.5 ML TUBE PO PRN ×7 (05:33→11:14)
[2019-01-31] MEDS ORDERED: Insulin LISPRO 300 UNITS/3 ML VIAL SQ SCH ×4 (06:00→21:00)
[2019-01-31 06:16] LABS: Basophils % 0.1 %; Eosinophils % 0.1 %; Red Cell Distribution Width 13.2 % (11.5-14.5)
[2019-01-31 06:18] LABS: Hematocrit 45.4 % (37.5-50.1); Hemoglobin 15.2 g/dL (12.9-16.9); Immature Granulocytes % 0.7 % (0-4); Immature Platelets 1.7 % (1.1-6.1); Lymphocytes # 0.9 K/mcL (0.6-4.6); Lymphocytes % 6.4 %; Mean Corpuscular HGB Conc 33.5 g/dL (31.6-35.5); Mean Corpuscular Hemoglobin 31.5 pg (28.0-33.3); Mean Platelet Volume 9.5 fL (9.4-12.4); Monocytes # 0.7 K/mcL (0.0-1.3); Monocytes % 5.4 %; Neutrophils # 11.8 K/mcL (1.6-8.9); Red Blood Count 4.83 M/mcL (4.19-5.50); Segmented Neutrophils % 87.3 %; White Blood Count 13.5 K/mcL (4.3-11.1)
[2019-01-31 06:20] LABS: Platelet Count 87 K/mcL (140-400)
[2019-01-31 07:38] LABS: BUN/Creatinine Ratio 18 (6-26); Blood Urea Nitrogen 20 mg/dL (8-23); Calcium 9.6 mg/dL (8.6-10.3); Carbon Dioxide 24 mEq/L (23-29); Chloride 103 mEq/L (98-107); Glucose 309 mg/dL (70-105); Osmolality,Calculated 294 (280-300); Potassium 4.8 mEq/L (3.5-5.1); Sodium 135 mEq/L (136-145); eGFR For African Americans > 60 (> 60); eGFR For Non-African Americans > 60 (> 60)
[2019-01-31 08:40] LABS: Estimated Average Glucose 189 mg/dl
[2019-01-31] MEDS ORDERED: Apixaban 5 MG TABLET PO SCH (09:00)
[2019-01-31] MEDS ORDERED: Insulin DETEMIR 100 UNIT/ML X5UNITS SQ SCH (09:00)
--- NOTE | 2019-01-31 09:46 | Event Note ---
Date of Encounter: 01/31/19 Time of Encounter: 08:00 Patient sitting up in chair. No complaints, states he feels much better. No chest pain, mild SOB, mild cough, no N/V/D. HR better controlled now. Will continue antibiotics and order sputum culture. Suspect uncontrolled atrial fibrillation as partial culprit for lactic acidosis. Will repeat lactic acid level. Presently, patient has minimal oxygen requirement and HR is controlled and BP stable. Will monitor clinically. Exam: T: 98.7; HR 99: RR 21: BP: 134/98 General: NAD, talkative HEENT: moist mucosa, neck supple Chest: coarse breath sounds, rhonchi and wheezes throughout, basilar crackles on right Abdomen: soft, NT, ND, + BS Ext: trace edema, pulses equal, full ROM, no calf pain Neuro: A&Ox3, no focal deficits Skin: wamr and dry Psych: talkative, a little anxious/manic Labs reviewed Imp/Plan: 1. Atrial Fibrillation w RVR: continue amiodarone drip; cardiology consulted; may transition to 2N/stepdown unit when bed available. 2. Sepsis: ocntinue antibiotics, culture sputum, monitor clinically, repeat Lactate. 3. DM2: start basal insulin, continue SSI. 4. DVT prophylaxis: on Eliquis.
[2019-01-31] MEDS ORDERED: Perflutren Lipid Microsphere 1.3 ML in 0.9 % Sodium Chloride 8.7 ML IVP ONE (09:48)
[2019-01-31] MEDS ORDERED: Perflutren Lipid Microsphere 2 ML VIAL ONE (09:52)
[2019-01-31] MEDS ORDERED: Piperacillin/Tazobactam 3.375 GM in 0.9 % Sodium Chloride Mini Bag 100 ML IVPB SCH (10:00)
--- NOTE | 2019-01-31 10:44 | Cardiology Consult Note ---
Date of Encounter: 01/31/19 Time of Encounter: 10:48 Assessment and Plan (1) Sepsis Current Visit: Yes Status: Acute Meets sepsis criteria. Elevated HR, Fevers, elevated WBC. Currently feels much better. Antibiotic regimen and management per primary team. P Qualifiers: Sepsis type: sepsis due to unspecified organism Severe sepsis acute organ dysfunction type: unspecified Severe sepsis shock status: unspecified Qualified Code(s): A41.9 - Sepsis, unspecified organism; R65.20 - Severe sepsis without septic shock (2) A-fib Current Visit: Yes Status: Chronic Currently rate controlled on telemetry HR 80-90s; was placed on cardizem gtt and transitioned to Amiodarone gtt Trops negative x 1. Denies chest, palpitations, dizziness. Will stop Admiodarone gtt; will start home dose cardizem 180mg daily. On Metoprolol 12.5 mg BID, continue. On Eliquis, continue. Echo pending; will review with further recs. [facility]. Discussed and reviewed with Dr. Jim. Qualifiers: Atrial fibrillation type: unspecified Qualified Code(s): I48.91 - Unspecified atrial fibrillation Discussion w patient/family: The assessment and plan as outlined above was discussed with the patient and/or family members who expressed understanding and agreement. All questions were answered. Thank you for involving us in the care of your patient. Please call with any questions. History of Present Illness Consult date: 01/31/19 Consult reason: A fib RVR Chief complaint: A fib RVR History of present illness: Mr. Gunderson is a 63 year old male PMH COPD, DM, HTN, A-fib on Eliquis, cardizem, metoprolol. Admitted with fevers (meets sepsis criteria ED) and consulted for palpitations and rapid HR. A-fib RVR. Admits to diaphoresis, dyspnea, orthopnea, nonproductive cough, pedal edema prior to two episodes of palpitat ions. Denies chest pain, lightheadedness, sycnope, headaches, n/t, n/v, diarrhea. Treated in ED with fluid bolus, tylenol, cardizem and changed to amiodarone gtt. Denies other alleviating factors. Aggravated with possible air pollutants. However, pt. is difficult to understand r/t speech. Currently no complaints. Past Med Surg Social Fam HX - Past Medical History Medical history: atrial fibrillation, COPD, diabetes, hypertension Psychiatric history: schizophrenia - Social History Smoking Status: Current every day smoker Packs per day: 2 Smokeless Tobacco Status: No Alcohol use: none Drug use: none Medications and Allergies Allopurinol [Zyloprim] 300 mg PO DAILY 01/31/19 [History] Apixaban [Eliquis] 5 mg PO BID 01/31/19 [History] Budesonide/Formoterol 160/4.5 [Symbicort 160/4.5] 1 puff IH BID 01/31/19 [H istory] Cholecalciferol (Vitamin D3) [Vitamin D] 2,000 unit PO DAILY 01/31/19 [History] Divalproex (24 HR) [Depakote ER (24 HR)] 2,500 mg PO HS 01/31/19 [History] Docusate [Colace] 100 mg PO BID PRN 01/31/19 [History] Insulin ASPART [NovoLOG] 2 - 10 unit SQ TIDWM 01/31/19 [History] Insulin Glargine [Lantus] 74 unit SQ DAILY 01/31/19 [History] LORazepam [Ativan] 0.5 mg PO BID 01/31/19 [History] Lisinopril [Zestril] 10 mg PO DAILY 01/31/19 [History] [place] Oral Soln [[place]] 450 mg PO BID 01/31/19 [History] Loratadine [Allergy Relief] 10 mg PO DAILY 01/31/19 [History] Melatonin/Pyridoxine HCl (B6) [Melatonin 3 mg Tablet] 2 tab PO HS PRN 01/31/19 [History] Metoprolol Succinate [Toprol Xl] 12.5 mg PO BID 01/31/19 [History] Montelukast [Singulair] 10 mg PO DAILY 01/31/19 [History] [place]-3/Dha/Epa/Fish Oil [Sv Fish Oil 1,000 mg Softgel] 2 each PO BID 01/31/19 [History] Paliperidone Palmitate [Invega Sustenna] 156 mg IM Q28D 01/31/19 [History] Pravastatin Sodium [Pravachol] 40 mg PO HS 01/31/19 [History] Tiotropium [Spiriva] 18 mcg IH 0700 01/31/19 [History] dilTIAZem HCl [Cardizem] 180 mg PO DAILY 01/31/19 [History] hydrOXYzine HCl [Hydroxyzine HCl] 50 mg PO TID PRN 01/31/19 [History] levOCARNitine [Levocarnitine] 660 mg PO BID 01/31/19 [History] Allergy/AdvReac Type Severity Reaction Status Date / Time No Known Allergies Allergy Verified 01/31/19 11:15 All Systems Review: The remainder of the systems were reviewed and are negative - Cardiovascular Cardiovascular: as per HPI Physical Examination Vital Signs, Last 4 Hours Temp Pulse Resp BP Pulse Ox 01/31/19 09:00 99 24 95 01/31/19 08:00 97 21 134/98 94 01/31/19 07:47 98.7 F 01/31/19 07:00 110 20 134/96 95 General: Conversant, No Apparent Distress HEENT: Atraumatic, Normocephaly, Mucus Membranes Moist Neck: No JVD, Normal carotid pulses Cardiac: Reg Rate and Rhythm, Normal S1 and S2, No Murmur Lungs: Normal Breath Sounds, No Wheeze, Rales, Rhonchi Neuro: Alert and responsive, No focal deficits noted Abdomen: Soft, Non-Tender Skin: No rashes noted on visualized skin Musculoskeletal: No Chest Wall Tenderness Extremities: No Clubbing, No Cyanosis, No Edema, Normal Pulses Results 01/31/19 05:54 01/31/19 06:59 Lab Results Laboratory Tests 01/30/19 01/31/19 01/31/19 00:00 05:54 05:54 WBC 13.5 H BUN Creatinine Est GFR (Non-Af Amer) Hemoglobin A1c 8.2 H Troponin I < 0.03 01/31/19 06:59 WBC BUN 20 Creatinine 1.09 Est GFR (Non-Af Amer) > 60 Hemoglobin A1c Troponin I Impressions Chest X-Ray 01/31/19 00:38 IMPRESSION: Negative limited low lung volume portable examination. D/ / Carmelo Flores MD / Carmelo Flores MD Interpreting Provider: Carmelo Flores MD Chest CTA 01/31/19 02:29 IMPRESSION: Negative for acute pulmonary embolism. Left lower lobe airspace disease, most suspicious for aspiration sequela given trace hyper airways secretions. Pneumonia is a differential consideration. Mild mediastinal and hilar lymphadenopathy is presumably reactive. Heterogeneous enlarged thyroid gland. Recommend nonemergent follow-up thyroid ultrasound, unless already performed elsewhere. D/ / Sudhir Zarate / Sudhir Zarate Interpreting Provider: Sudhir Zarate Active Medications Apixaban (Eliquis) 5 mg PO BID HIRAM; Protocol Stop: 08/02/19 09:01 Last Admin: 01/31/19 09:24 Dose: 5 mg Documented by: Dextrose/Water (Dextrose 50% (Syg)) 25 ml IVP AD PRN PRN Reason: Hypoglycemia Stop: 08/02/19 05:34 Dextrose/Water (Dextrose 50% (Syg)) 25 ml IVP AD PRN PRN Reason: Hypoglycemia Stop: 08/02/19 08:17 Glucagon (Glucagen) 1 mg IM ONCE PRN PRN Reason: Hypoglycemia Stop: 08/02/19 05:34 Glucagon (Glucagen) 1 mg IM ONCE PRN PRN Reason: Hypoglycemia Stop: 08/02/19 08:17 Glucose (Gluctose) 15 gm PO ONCE PRN PRN Reason: Hypoglycemia Stop: 08/02/19 05:34 Glucose (Gluctose) 30 gm PO ONCE PRN PRN Reason: Hypoglycemia Stop: 08/02/19 05:34 Glucose (Gluctose) 15 gm PO ONCE PRN PRN Reason: Hypoglycemia Stop: 08/02/19 08:17 Glucose (Gluctose) 30 gm PO ONCE PRN PRN Reason: Hypoglycemia Stop: 08/02/19 08:17 Amiodarone HCl/Dextrose (Amiodarone Drip Premix 360mg/200ml) 360 mg in 200 mls @ 16.667 mls/hr IVC CONT HIRAM Stop: 08/02/19 04:31 Sodium Phosphate 30 mmol/ (Sodium Chloride) 260 mls @ 42 mls/hr IVPB ONCE ONE Stop: 01/31/19 11:12 Last Admin: 01/31/19 06:27 Dose: 42 mls/hr Documented by: Dextrose (Dextrose 5%) 1,000 mls @ 100 mls/hr IVC .Q10H PRN PRN Reason: HYPOGLYCEMIA Stop: 08/02/19 05:34 Dextrose (Dextrose 5%) 1,000 mls @ 100 mls/hr IVC .Q10H PRN PRN Reason: HYPOGLYCEMIA Stop: 08/02/19 08:17 Piperacillin Sod/Tazobactam (Sod 3.375 gm/ Sodium Chloride) 100 mls @ 25 mls/hr IVPB Q8H HIRAM Stop: 08/02/19 10:01 Vancomycin HCl 2,000 mg/ (Sodium Chloride) 500 mls @ 250 mls/hr IVPB Q12H HIRAM Stop: 08/02/19 14:01 Insulin Detemir (Levemir) 20 unit SQ BID HIRAM Stop: 08/02/19 09:01 Last Admin: 01/31/19 09:25 Dose: 20 unit Documented by: Insulin Human Lispro (Humalog) 0 units SQ TIDAC [facility]; Protocol Stop: 08/02/19 08:31 Last Admin: 01/31/19 09:28 Dose: 14 units Documented by: Insulin Human Lispro (Humalog) 0 units SQ HS [facility]; Protocol Stop: 08/02/19 21:01 Naloxone HCl (Narcan) 0.4 mg IVP Q2MPRN PRN PRN Reason: SEE COMMENTS Stop: 08/02/19 05:04 - Imaging and Cardiology Echo: pending Consult Discharge Plan - Plan [facility]errals: [facility]Primary Care Provider[facility] - CHADS2-VASC Score - Score Age: Less than 65 Sex: Male CHF History: No Stroke/TIA/Thromboembolism Hx: No Vascular disease history: No Diabetes history: Yes Score: 1
[2019-01-31] MEDS ORDERED: hydrOXYzine pamoate 25 MG CAPSULE PO PRN (11:14)
[2019-01-31] MEDS ORDERED: Melatonin 3 MG TABLET PO PRN (11:14)
[2019-01-31] MEDS: Piperacillin/Tazobactam 3.375 GM in 0.9 % Sodium Chloride Mini Bag 100 ML IVPB SCH ×2 (12:24→20:22)
[2019-01-31] MEDS: Insulin LISPRO 300 UNITS/3 ML VIAL SQ SCH ×3 (12:25→20:27)
[2019-01-31] MEDS: Diltiazem CD (24hr) 180 MG CAPSULE PO SCH (12:25)
[2019-01-31] MEDS: Budesonide/Formoterol 160/4.5 1 PUFF INH IH SCH ×2 (12:44→21:47)
[2019-01-31] MEDS: Apixaban 5 MG TABLET PO SCH (20:24)
[2019-01-31] MEDS: Insulin DETEMIR 100 UNIT/ML X5UNITS SQ SCH (20:29)
[2019-02-01] MEDS: Piperacillin/Tazobactam 3.375 GM in 0.9 % Sodium Chloride Mini Bag 100 ML IVPB SCH ×3 (03:19→20:26)
--- NOTE | 2019-02-01 06:40 | Electrocardiograph Report ---
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
[2019-02-01] MEDS ORDERED: Ipratropium/Albuterol Neb 3 ML IH ONE (06:49)
[2019-02-01] MEDS: Budesonide/Formoterol 160/4.5 1 PUFF INH IH SCH ×2 (07:30→20:44)
--- NOTE | 2019-02-01 08:04 | Internal Med Progress Note ---
Hospitalist Progress Note - Encounter Date of Encounter: 02/01/19 Time of Encounter: 08:04 - Subjective Interval History: Patient states his breathing is feeling better. Less cough, not very productive, and not as dyspneic while at rest. He uses cpap at night. Says fevers abated. No N/V/D, no CP or palpitations. - Exam Vitals: Temp Pulse Resp BP Pulse Ox 97.6 F 83 18 116/77 92 02/01/19 03:23 02/01/19 03:23 02/01/19 07:31 02/01/19 07:31 02/01/19 07:31 Exam: General: NAD, good eye contact, disheveled and chronically ill appearing Thoracic: coarse inspiratory left sided breath sounds Cardio: Normal S1 and S2, irregularly irregular rhythm, regular rate Abdomen: Soft, nontender, obese Extremities: Warm, well perfused. DP pulses 2+ b/l. Significant pitting edema b/l LE Skin: Intact. No rashes, bruises, or ulcers Neuro: Awake, fully oriented. Speech fluent. Able to answer questions appropriately and provide basic medical history and medications/doses - Summary of Assessment and Plan Summary of Assessment and Plan: LLL Pneumonia: fever, cough, infiltrate seen on CT. - UAg's, MRSA swab - empiric zosyn and vanc, consider de-escalating to levaquin 750 po Severe sepsis: SIRS 4/4, 2/2 pneumonia above, lactate 3.1 and SELIN - BCx x2 pending - repeat lactate - fluid boluses prn - abx as above A-Fib: AC on Eliquis 5 bid, now rate controlled on home dilt 180 and lopressor 12.5 bid (home toprol 12.5 bid) - Cardio following, appreciate rec's HTN: home lisinopril 10, cardizem and metoprolol as above DM2: home lantus, holding PO, use SSI COPD: home symbicort, spiriva [facility]ia[facility], continue home invega sustenna monthly, depakote 2500 qhs, lithium 450 bid, ativan 0.5 bid, vistaril prn Morbid obesity: BMI 40 PPx: eliquis Tele: yes Activity: up ad jaylyn FEN: cardiac ADA, no MIVF Lines: PIV Consults: Cardio Code: Full Dispo: patient requires inpatient eval and management at this time, anticipate 1-2 days, will need transfer back to [place] inpatient [facility] Internal Medicine: Result - Labs CBC & Chem 7: 02/01/19 08:56 02/01/19 08:56 - ABG Interpretation ABG results: ABG ABG pH 7.43 pH Units (7.32-7.45) 01/31/19 00:54 ABG pCO2 38 mmHg (35-45) 01/31/19 00:54 ABG pO2 74 mmHg (85-104) L 01/31/19 00:54 ABG O2 Saturation 95 % (95-98) 01/31/19 00:54 PT/INR, D-dimer PT 12.5 Seconds (9.4-12.1) H 01/30/19 00:00 - Impressions Impressions Echocardiogram 01/31/19 09:15 Impressions: LVEF 60%. Normal LV chamber size, and systolic function. Indeterminate diastolic function. The right ventricle was not well visualized but appeared grossly normal in size and function Moderately dilated left atrium. Mild tricuspid regurgitation. No evidence of pulmonary hypertension. There is a trivial pericardial effusion present.There is no echocardiographic evidence of tamponade. Left Ventricular Wall Motion: Rest Echo Findings All wall segments showed normal motion. Findings: Study Quality * Technically sub-optimal due to poor echocardiographic windows. ECG Findings * Probably atrial fibrillation. Left Ventricle * LVEF 60%. * Normal LV chamber size, and systolic function. * Indeterminate diastolic function. * Atypical septal motion noted. * Definity echo contrast was used. Right Ventricle * The right ventricle was not well visualized but appeared grossly normal in size and function Left Atrium * Moderately dilated left atrium. Right Atrium * Normal right atrial size. Interatrial Septum * Interatrial septum not well evaluated. Aortic Valve * Aortic valve not well visualized. * No aortic regurgitation. * No aortic stenosis. Mitral Valve * Normal mitral valve structure. * No mitral regurgitation. * No mitral stenosis. Tricuspid Valve * Normal tricuspid valve structure. * No tricuspid stenosis. * No evidence of pulmonary hypertension. * Mild tricuspid regurgitation. Pulmonic Valve * Pulmonic valve not well visualized. Aorta * Normally sized aortic root. Pericardium * There is a trivial pericardial effusion present.There is no echocardiographic evidence of tamponade. * IVC * The IVC is not well evaluated. Pulmonary Artery * Pulmonary artery not well visualized. Consult Discharge Plan - Plan [facility]errals: [facility]Primary Care Provider[facility] -
[2019-02-01] MEDS: Loratadine 10 MG TABLET PO SCH (08:11)
[2019-02-01] MEDS: Diltiazem CD (24hr) 180 MG CAPSULE PO SCH (08:11)
[2019-02-01] MEDS: Apixaban 5 MG TABLET PO SCH ×2 (08:11→20:29)
[2019-02-01] MEDS: Insulin LISPRO 300 UNITS/3 ML VIAL SQ SCH ×5 (08:12→20:32)
[2019-02-01] MEDS: Insulin DETEMIR 100 UNIT/ML X5UNITS SQ SCH ×2 (08:20→20:39)
[2019-02-01] MEDS: *HR* LORazepam 1 MG TABLET PO SCH ×2 (08:56→20:28)
[2019-02-01] MEDS: Lithium Oral Soln 300 MG/5 ML (8 mEq/5mL) UDC PO SCH ×2 (08:57→20:29)
[2019-02-01 09:12] LABS: Hematocrit 44.8 % (37.5-50.1)
[2019-02-01 09:13] LABS: Hemoglobin 15.2 g/dL (12.9-16.9); Immature Platelets 1.9 % (1.1-6.1); Mean Corpuscular HGB Conc 33.9 g/dL (31.6-35.5); Mean Corpuscular Hemoglobin 31.7 pg (28.0-33.3); Mean Corpuscular Volume 93.3 fL (83.0-100.0); Mean Platelet Volume 9.1 fL (9.4-12.4); Red Blood Count 4.8 M/mcL (4.19-5.50); Red Cell Distribution Width 13.2 % (11.5-14.5); White Blood Count 9.8 K/mcL (4.3-11.1)
[2019-02-01 09:30] LABS: BUN/Creatinine Ratio 22 (6-26); Blood Urea Nitrogen 24 mg/dL (8-23); Calcium 9.2 mg/dL (8.6-10.3); Carbon Dioxide 26 mEq/L (23-29); Chloride 101 mEq/L (98-107); Glucose 332 mg/dL (70-105); Osmolality,Calculated 303 (280-300); Potassium 4.6 mEq/L (3.5-5.1); Sodium 138 mEq/L (136-145); eGFR For African Americans > 60 (> 60); eGFR For Non-African Americans > 60 (> 60)
--- NOTE | 2019-02-01 11:10 | Cardiology Progress Note ---
Date of Encounter: 02/01/19 Time of Encounter: 11:07 Assessment and Plan (1) Sepsis Current Visit: Yes Status: Acute Meets sepsis criteria this admission. Continues to feel much better. Antibiotic regimen and management per primary team. P Qualifiers: Sepsis type: sepsis due to unspecified organism Severe sepsis acute organ dysfunction type: unspecified Severe sepsis shock status: unspecified Qualified Code(s): A41.9 - Sepsis, unspecified organism; R65.20 - Severe sepsis without septic shock (2) A-fib Current Visit: Yes Status: Chronic Remains rate controlled on telemetry Ave HR 93. No significant events on telemetry. Trops negative x 1. Continues to Deny chest, palpitations, dizziness. On cardizem 180mg daily, Metoprolol 12.5 mg BID, continue. On Eliquis, continue. Echo reviewed; EF 60%. Mild tricuspid regurgitation, trivial pericardial effusion; There is no evidence of tamponade. NSWMA. Sees [facility] for hx of A-fib; records pending from [facility]. Will discuss and review with Dr. Aron Samaniego. Will f/u outpatient with [facility]. Qualifiers: Atrial fibrillation type: unspecified Qualified Code(s): I48.91 - Unspecified atrial fibrillation Discussion w patient/family: The assessment and plan as outlined above was discussed with the patient and/or family members who expressed understanding and agreement. All questions were answered. Thank you for involving us in the care of your patient. Please call with any questions. Subjective Principal diagnosis: SOB Interval history: Denies SOB, chest pain, palpitations. Sitting comfortably on side of bed drinking coffee. Objective Vital Signs, Last 4 Hours Temp Pulse Resp BP Pulse Ox 02/01/19 07:31 18 116/77 92 02/01/19 07:30 97.7 F 98 19 131/97 92 General: Conversant, No Apparent Distress HEENT: Atraumatic, Normocephaly, Mucus Membranes Moist Neck: No JVD, Normal carotid pulses Cardiac: Reg Rate and Rhythm, Normal S1 and S2, No Murmur Lungs: Other (exp. wheezes, diminished throughout lung medellin. ) Neuro: Alert and responsive, No focal deficits noted Abdomen: Soft, Non-Tender Skin: No rashes noted on visualized skin Musculoskeletal: No Chest Wall Tenderness Extremities: No Clubbing, No Cyanosis, No Edema, Normal Pulses Results 02/01/19 08:56 02/01/19 08:56 Lab Results 02/01/19 02/01/19 08:56 08:56 WBC 9.8 Hgb 15.2 Hct 44.8 Plt Count 95 L Sodium 138 Potassium 4.6 Chloride 101 Carbon Dioxide 26 BUN 24 H Creatinine 1.11 Glucose 332 H Calcium 9.2 Magnesium 2.0 Laboratory Tests 01/30/19 00:00 Troponin I < 0.03 Impressions Echocardiogram 01/31/19 09:15 Impressions: LVEF 60%. Normal LV chamber size, and systolic function. Indeterminate diastolic function. The right ventricle was not well visualized but appeared grossly normal in size and function Moderately dilated left atrium. Mild tricuspid regurgitation. No evidence of pulmonary hypertension. There is a trivial pericardial effusion present.There is no echocardiographic evidence of tamponade. Left Ventricular Wall Motion: Rest Echo Findings All wall segments showed normal motion. Active Medications Allopurinol (Zyloprim) 300 mg PO DAILY [facility] Stop: 08/03/19 09:01 Last Admin: 02/01/19 08:11 Dose: 300 mg Documented by: Apixaban (Eliquis) 5 mg PO BID HIRAM; Protocol Stop: 08/02/19 09:01 Last Admin: 02/01/19 08:11 Dose: 5 mg Documented by: Budesonide/Formoterol Fumarate (Symbicort) 1 puff IH BIDR [facility]; Protocol Stop: 08/02/19 11:15 Last Admin: 02/01/19 07:30 Dose: 1 puff Documented by: Dextrose/Water (Dextrose 50% (Syg)) 25 ml IVP AD PRN PRN Reason: Hypoglycemia Stop: 08/02/19 08:17 Diltiazem HCl (Cardizem Cd) 180 mg PO DAILY [facility] Stop: 08/02/19 11:41 Last Admin: 02/01/19 08:11 Dose: 180 mg Documented by: Divalproex Sodium (Depakote Er (24 Hr)) 2,500 mg PO HS [facility] Stop: 08/03/19 21:01 Docusate Sodium (Colace) 100 mg PO BID PRN; Protocol PRN Reason: Constipation Stop: 08/02/19 11:15 Glucagon (Glucagen) 1 mg IM ONCE PRN PRN Reason: Hypoglycemia Stop: 08/02/19 05:34 Glucose (Gluctose) 15 gm PO ONCE PRN PRN Reason: Hypoglycemia Stop: 08/02/19 05:34 Glucose (Gluctose) 30 gm PO ONCE PRN PRN Reason: Hypoglycemia Stop: 08/02/19 05:34 Hydroxyzine Pamoate (Vistaril) 50 mg PO TID PRN PRN Reason: Anxiety Dextrose (Dextrose 5%) 1,000 mls @ 100 mls/hr IVC .Q10H PRN PRN Reason: HYPOGLYCEMIA Stop: 08/02/19 05:34 Piperacillin Sod/Tazobactam (Sod 3.375 gm/ Sodium Chloride) 100 mls @ 25 mls/hr IVPB Q8H [facility] Stop: 08/02/19 12:01 Last Admin: 02/01/19 03:19 Dose: 25 mls/hr Documented by: Vancomycin HCl 2,000 mg/ (Sodium Chloride) 500 mls @ 250 mls/hr IVPB Q12H [facility] Stop: 08/02/19 14:01 Last Infusion: 02/01/19 05:26 Dose: Infused Documented by: Insulin Detemir (Levemir) 20 unit SQ BID [facility] Stop: 08/02/19 09:01 Last Admin: 02/01/19 08:20 Dose: 20 unit Documented by: Insulin Human Lispro (Humalog) 0 units SQ TIDAC [facility]; Protocol Stop: 08/02/19 08:31 Last Admin: 02/01/19 08:12 Dose: 8 units Documented by: Insulin Human Lispro (Humalog) 0 units SQ HS [facility]; Protocol Stop: 08/02/19 21:01 Last Admin: 01/31/19 20:27 Dose: 4 units Documented by: Halls Citrate (Halls) 450 mg PO BID [facility] Stop: 08/03/19 09:01 Last Admin: 02/01/19 08:57 Dose: 450 mg Documented by: Loratadine (Claritin) 10 mg PO DAILY [facility]; Protocol Stop: 08/03/19 09:01 Last Admin: 02/01/19 08:11 Dose: 10 mg Documented by: Lorazepam (Ativan) 0.5 mg PO BID [facility] Stop: 08/03/19 09:01 Last Admin: 02/01/19 08:56 Dose: 0.5 mg Documented by: Melatonin (Melatonin) 3 mg PO HS PRN PRN Reason: Insomnia Metoprolol Tartrate (Lopressor) 12.5 mg PO BID [facility] Stop: 08/02/19 11:15 Last Admin: 02/01/19 08:10 Dose: 12.5 mg Documented by: Montelukast Sodium (Singulair) 10 mg PO DAILY [facility] Stop: 08/02/19 11:15 Last Admin: 02/01/19 08:11 Dose: 10 mg Documented by: Naloxone HCl (Narcan) 0.4 mg IVP Q2MPRN PRN PRN Reason: SEE COMMENTS Stop: 08/02/19 05:04 Zolpidem Tartrate (Ambien) 5 mg PO HS [facility]; Protocol Stop: 08/02/19 21:01 Last Admin: 01/31/19 20:24 Dose: 5 mg Documented by: Consult Discharge Plan - Plan [facility]: [facility]Primary Care Provider[facility] -
--- NOTE | 2019-02-01 13:25 | Event Note ---
Date of Encounter: 02/01/19 Time of Encounter: 13:20 - Cardiology Event Note Discussed with Dr. Aron Samaniego, continue with rate control and AC. F/u with cardiology arranged, cardiology signing off, re-consult PRN.
[2019-02-01] MEDS ORDERED: Aminoglycoside Consult 1 EACH MC ONE (19:29)
[2019-02-01] MEDS ORDERED: Divalproex (24 HR) 500 MG TABLET PO SCH (21:00)
[2019-02-02 01:32] LABS: Hematocrit 41.7 % (37.5-50.1); Mean Corpuscular HGB Conc 32.6 g/dL (31.6-35.5); Red Cell Distribution Width 13.2 % (11.5-14.5)
[2019-02-02 01:34] LABS: Hemoglobin 13.6 g/dL (12.9-16.9); Mean Corpuscular Hemoglobin 31.1 pg (28.0-33.3); Mean Corpuscular Volume 95.2 fL (83.0-100.0); Mean Platelet Volume 9.6 fL (9.4-12.4); Red Blood Count 4.38 M/mcL (4.19-5.50); White Blood Count 7.8 K/mcL (4.3-11.1)
[2019-02-02 01:47] LABS: BUN/Creatinine Ratio 21 (6-26); Blood Urea Nitrogen 22 mg/dL (8-23); Calcium 8.5 mg/dL (8.6-10.3); Carbon Dioxide 25 mEq/L (23-29); Chloride 105 mEq/L (98-107); Glucose 287 mg/dL (70-105); Osmolality,Calculated 294 (280-300); Potassium 4.8 mEq/L (3.5-5.1); Sodium 135 mEq/L (136-145); eGFR For African Americans > 60 (> 60); eGFR For Non-African Americans > 60 (> 60)
[2019-02-02] MEDS: Piperacillin/Tazobactam 3.375 GM in 0.9 % Sodium Chloride Mini Bag 100 ML IVPB SCH (05:28)
[2019-02-02] MEDS: Budesonide/Formoterol 160/4.5 1 PUFF INH IH SCH (07:21)
[2019-02-02] MEDS: Lithium Oral Soln 300 MG/5 ML (8 mEq/5mL) UDC PO SCH (08:14)
[2019-02-02] MEDS: Insulin DETEMIR 100 UNIT/ML X5UNITS SQ SCH (08:24)
[2019-02-02] MEDS: Loratadine 10 MG TABLET PO SCH (08:25)
[2019-02-02] MEDS: *HR* LORazepam 1 MG TABLET PO SCH (08:25)
[2019-02-02] MEDS: Apixaban 5 MG TABLET PO SCH (08:25)
[2019-02-02] MEDS: Diltiazem CD (24hr) 180 MG CAPSULE PO SCH (08:25)
[2019-02-02] MEDS: Insulin LISPRO 300 UNITS/3 ML VIAL SQ SCH ×3 (08:26→17:09)
--- NOTE | 2019-02-02 09:19 | Discharge Summary ---
- NOTES TO OUTPATIENT PROVIDER Notes to Outpatient Provider: Pneumonia and sepsis, discharging on Augmentin 875 bid, [facility] Date of Encounter: 02/02/19 Time of Encounter: 09:17 Hospital course: Dear Doctors, I recently had the opportunity to care for this patient during their recent hospital stay at [facility]. Osei Gunderson is a 63 M w hx HTN, A-Fib on AC, DM2, COPD, bipolar/schizophrenia, morbid obesity, who presented at time of admission with fever, cough, and SOB. He was found to be febrile, tachycardic, with leukocytosis, and CT showing infiltrate LLL. Admitted for pneumonia and sepsis and A-Fib RVR. In the hospital, patient improved clinically with fluids and broad spectrum abx and was narrowed to Augmentin at time of discharge. Heart rate improved with treatment of infection and continuing home raymond blockers. He will return to inpatient [place] [facility] for ongoing psych care due to continued reported homocidal threats. Dx: Bacterial pneumonia, sepsis, A-Fib RVR Pertinent tests/consults: Cardio consult for A-Fib RVR Follow up: [facility], and per Psych Tests pending: none Med changes: new Augmentin 875 bid, last dose 02/05 Mental status: awake, fully oriented Code status: [employer] spent on discharge: 35 minutes It has been my pleasure participating in this patient's care. Please contact me with any questions or concerns regarding their hospital stay. Sincerely, Sloan Beck MD - Discharge Medications Prescriptions: New Amoxicillin/Clavulanate [Augmentin] 875 mg PO BIDWM #7 tablet Continued Apixaban [Eliquis] 5 mg PO BID Tiotropium [Spiriva] 18 mcg IH 0700 Lisinopril [Zestril] 10 mg PO DAILY Cholecalciferol (Vitamin D3) [Vitamin D3] 2,000 unit PO DAILY [place]-3/Dha/Epa/Fish Oil [Sv Fish Oil 1,000 mg Softgel] 2 each PO BID Montelukast [Singulair] 10 mg PO DAILY Loratadine [Allergy Relief] 10 mg PO DAILY Pravastatin Sodium [Pravachol] 40 mg PO HS Budesonide/Formoterol 160/4.5 [Symbicort 160/4.5] 1 puff IH BID Allopurinol [Zyloprim] 300 mg PO DAILY Insulin Glargine [Lantus] 74 unit SQ DAILY Docusate [Colace] 100 mg PO BID PRN PRN Reason: Constipation Paliperidone Palmitate [Invega Sustenna] 156 mg IM Q28D levOCARNitine [Levocarnitine] 660 mg PO BID dilTIAZem HCl [Cardizem] 180 mg PO DAILY [place] Oral Soln [Danvers] 450 mg PO BID Insulin ASPART [NovoLOG] 2 - 10 unit SQ TIDWM hydrOXYzine HCl [Hydroxyzine HCl] 50 mg PO TID PRN PRN Reason: Anxiety Divalproex (24 HR) [Depakote ER (24 HR)] 2,500 mg PO HS LORazepam [Ativan] 0.5 mg PO BID Melatonin/Pyridoxine HCl (B6) [Melatonin 3 mg Tablet] 2 tab PO HS PRN PRN Reason: Sleep Metoprolol Succinate [Toprol Xl] 12.5 mg PO BID glipiZIDE [Glipizide] 10 mg PO BID Home Medications: Allopurinol [Zyloprim] 300 mg PO DAILY 01/31/19 [History] Apixaban [Eliquis] 5 mg PO BID 01/31/19 [History] Budesonide/Formoterol 160/4.5 [Symbicort 160/4.5] 1 puff IH BID 01/31/19 [History] Cholecalciferol (Vitamin D3) [Vitamin D3] 2,000 unit PO DAILY 01/31/19 [History] Divalproex (24 HR) [Depakote ER (24 HR)] 2,500 mg PO HS 01/31/19 [History] Docusate [Colace] 100 mg PO BID PRN 01/31/19 [History] Insulin ASPART [NovoLOG] 2 - 10 unit SQ TIDWM 01/31/19 [History] Insulin Glargine [Lantus] 74 unit SQ DAILY 01/31/19 [History] LORazepam [Ativan] 0.5 mg PO BID 01/31/19 [History] Lisinopril [Zestril] 10 mg PO DAILY 01/31/19 [History] [place] Oral Soln [[place]] 450 mg PO BID 01/31/19 [History] Loratadine [Allergy Relief] 10 mg PO DAILY 01/31/19 [History] Melatonin/Pyridoxine HCl (B6) [Melatonin 3 mg Tablet] 2 tab PO HS PRN 01/31/19 [History] Metoprolol Succinate [Toprol Xl] 12.5 mg PO BID 01/31/19 [History] Montelukast [Singulair] 10 mg PO DAILY 01/31/19 [History] [place]-3/Dha/Epa/Fish Oil [Sv Fish Oil 1,000 mg Softgel] 2 each PO BID 01/31/19 [History] Paliperidone Palmitate [Invega Sustenna] 156 mg IM Q28D 01/31/19 [History] Pravastatin Sodium [Pravachol] 40 mg PO HS 01/31/19 [History] Tiotropium [Spiriva] 18 mcg IH 0700 01/31/19 [History] dilTIAZem HCl [Cardizem] 180 mg PO DAILY 01/31/19 [History] glipiZIDE [Glipizide] 10 mg PO BID 01/31/19 [History] hydrOXYzine HCl [Hydroxyzine HCl] 50 mg PO TID PRN 01/31/19 [History] levOCARNitine [Levocarnitine] 660 mg PO BID 01/31/19 [History] Amoxicillin/Clavulanate [Augmentin] 875 mg PO BIDWM #7 tablet 02/02/19 [Rx] Allergies/Adverse Reactions: Allergy/AdvReac Type Severity Reaction Status Date / Time No Known Allergies Allergy Verified 01/31/19 11:15 Date of admission: 01/31/19 05:17 Primary care physician: [place]CP [place] Consults: 01/31/19 04:57 Consult to Cardiology [CONS] Stat Comment: Consulting Provider: Cardiology [facility] Reason for Consult: Atrial fibrillation with rapid ventricular response Time Notified: 04:57 Call Completed: No - Constitutional Vitals: Temp Pulse Resp BP Pulse Ox 97.4 F L 99 16 121/75 97 02/02/19 07:34 02/02/19 07:34 02/02/19 07:34 02/02/19 07:34 02/02/19 07:34 Exam: General: NAD, good eye contact, disheveled and chronically ill appearing, obese Thoracic: coarse inspiratory left sided breath sounds Cardio: Normal S1 and S2, irregularly irregular rhythm, regular rate Abdomen: Soft, nontender, obese Extremities: Warm, well perfused. DP pulses 2+ b/l. Significant pitting edema b/l LE Skin: Intact. No rashes, bruises, or ulcers Neuro: Awake, fully oriented. Speech fluent. Able to answer questions appropriately and provide basic medical history and medications/doses - Patient Status Disposition: Transfer Psychiatric Hosp Condition: Fair Functional capacity at discharge: independent ambulation Overall status at discharge: patient is progressing back to baseline - Discharge Instructions Instructions: Heart Failure (DC), Chronic Obstructive Pulmonary Disease (DC) Follow Up With: [facility] [Provider Group] (Office will call with date and time of appointment. ) [place],PCP [Primary Care Provider] - 02/08/19 10:15 am Additional Instructions: Follow-up appointments: If there is not an appointment listed below, please call your physician and schedule a follow-up appointment. If you have congestive heart failure and your symptoms return, make an appointment with your physician. Medication List: Carry an up to date list of medications you are taking at all time. We have given you an updated medication list including any new medications that you have been prescribed. Please provide that list to your primary provider Symptoms: If your condition changes or you experience any of the following symptoms, notify your physician immediately: Unusual or worsening pain, fever, persistent nausea and vomiting, bleeding, increase in swelling (especially in your legs), sudden weight gain, extreme dizziness, chest pain, increased drainage or redness from a wound or incision. Go to the emergency department if you experience a problem with breathing. Weights: If you have a history of swelling or shortness of breath, weigh yourself daily and notify your physician if you have a weight gain of two or more pounds in one day or 5 or more pounds in a week. If you experience any of the warning signs for stroke: Sudden numbness or weakness of the face, arm or leg; especially on one side of the body, sudden confusion, trouble speaking or understanding, sudden trouble seeing in one or both eyes, sudden trouble walking, dizziness, loss of balance or coordination, sudden sever headache with no cause; Call 911 or go to the emergency room. Stroke is a medical emergency. Some risk factors for stroke: Age, cigarette smoking, diabetes, excessive alcohol consumption, family history, high blood pressure, overweight, physical inactivity, prior stroke, heart attack, diagnosis of carotid artery stenosis or other artery disease. If you smoke, STOP: Smoking or tobacco use significantly increases your risk of heart and lung disease. Your chance of disease greatly increases if you continue to smoke. For more information, call the [place] tobacco quit line for smoking cessation 5-073-TNQU-NOW ( ) - Diet and Activity Activity: resume usual activities as tolerated Diet: diabetic diet
[2019-02-02 18:46] VITALS: BP 124/86
== END 2019-02-02 19:30 | DRG 871 ==
LOC: EMEROOARM 23:37 → ICNU 01-31 05:17 → SUATTDRO 01-31 05:17 → ICNU 01-31 05:35 → 2NNU 01-31 13:12 → 3BNU 02-01 16:39
PROVIDERS: ADMIT Internal Medicine; ATTEND Internal Medicine

== ENCOUNTER 2020-08-30 22:57 | Observation (INO) ==
[2020-08-31 01:02] LABS: Basophils % 0.4 %; Eosinophils # 0.2 K/mcL (0.0-0.6); Eosinophils % 2.5 %; Hematocrit 47.3 % (37.5-50.1); Hemoglobin 15.3 g/dL (12.9-16.9); Immature Granulocytes % 0.2 % (0-4); Lymphocytes # 2.3 K/mcL (0.6-4.6); Lymphocytes % 26.2 %; Mean Corpuscular HGB Conc 32.3 g/dL (31.6-35.5); Mean Corpuscular Hemoglobin 31.3 pg (28.0-33.3); Mean Corpuscular Volume 96.7 fL (83.0-100.0); Mean Platelet Volume 9.1 fL (9.4-12.4); Monocytes # 0.7 K/mcL (0.0-1.3); Monocytes % 8.2 %; Neutrophils # 5.6 K/mcL (1.6-8.9); Platelet Count 145 K/mcL (140-400); Red Blood Count 4.89 M/mcL (4.19-5.50); Red Cell Distribution Width 14.1 % (11.5-14.5); Segmented Neutrophils % 62.5 %; White Blood Count 8.9 K/mcL (4.3-11.1)
[2020-08-31 01:03] LABS: Bilirubin,Urine Negative (Negative); Blood,Urine Negative (Negative); Clarity,Urine Clear (Clear); Color,Urine Yellow (Yellow); Glucose,Urine (UA) 50 mg/dL (Normal); Ketones,Urine Negative (Negative); Leukocyte Esterase,Urine Negative (Negative); Nitrite,Urine Negative (Negative); Protein,Urine Negative (Neg-Trace); RBC,Urine 0-3 per hpf (0-3); Specific Gravity,Urine 1.016 (1.010-1.025); Squamous Epithelial Cell,Urine Few per hpf (None-Few); Urobilinogen,Urine Normal (Normal); WBC,Urine 0-3 per hpf (0-3)
[2020-08-31 01:10] LABS: INR 1.3; Prothrombin Time 14.8 Seconds (9.4-12.1)
[2020-08-31 01:13] LABS: Activated Partial Thrombo Time 30.7 Seconds (26.0-36.0)
[2020-08-31 01:16] LABS: Amphetamine Screen,Urine Negative ng/mL (Cutoff=1000); Barbiturate Screen,Urine Negative ng/mL (Cutoff=200); Benzodiazepines Screen,Urine Negative ng/mL (Cutoff=200); Cannabinoid Screen,Urine Positive ng/mL (Cutoff = 50); Cocaine Screen,Urine Negative ng/mL (Cutoff= 300); Opiate Screen,Urine Negative ng/mL (Cutoff=300); Phencyclidine Screen,Urine Negative ng/mL (Cutoff=25)
[2020-08-31 01:24] LABS: Alanine Aminotransferase 14 Units/L (7-52); Albumin 4.4 g/dL (3.5-5.7); Albumin/Globulin Ratio 1.8 (1.1-2.2); Alkaline Phosphatase 66 Units/L (34-104); Aspartate Amino Transferase 16 Units/L (13-39); BUN/Creatinine Ratio 14 (6-26); Bilirubin,Direct 0.1 mg/dL (0.0-0.2); Bilirubin,Indirect 0.3 mg/dL (0.0-1.0); Bilirubin,Total 0.4 mg/dL (0.3-1.0); Blood Urea Nitrogen 17 mg/dL (8-23); Calcium 9.5 mg/dL (8.6-10.3); Carbon Dioxide 24 mEq/L (23-29); Chloride 104 mEq/L (98-107); Creatine Kinase 57 Units/L (30-223); Ethanol < 10 mg/dL (Less than 10); Globulin 2.5 g/dL (2.4-3.5); Glucose 131 mg/dL (70-105); Osmolality,Calculated 283 (280-300); Potassium 4.2 mEq/L (3.5-5.1); Sodium 135 mEq/L (136-145); Total Protein 6.9 g/dL (6.4-8.9); Troponin I < 0.03 ng/mL (< 0.04); eGFR For African Americans > 60 (> 60); eGFR For Non-African Americans > 60 (> 60)
[2020-08-31 01:37] LABS: Thyroid Stimulating Hormone 1.763 mcIU/mL (0.340-5.600)
[2020-08-31] MEDS ORDERED: Furosemide 40 MG/4 ML VIAL IVP SCH (04:23)
[2020-08-31] MEDS ORDERED: hydrOXYzine pamoate 25 MG CAPSULE PO PRN (04:24)
[2020-08-31] MEDS ORDERED: Ondansetron 4 MG/2 ML VIAL IVP PRN (04:25)
[2020-08-31] MEDS ORDERED: Acetaminophen 325 MG TABLET PO PRN (04:25)
[2020-08-31] MEDS ORDERED: Melatonin 3 MG TABLET PO PRN ×2 (04:25→04:31)
[2020-08-31] MEDS ORDERED: Naloxone 0.4 MG/ML INJ IVP PRN (04:25)
[2020-08-31] MEDS ORDERED: D5% in Water 1,000 ML IVC PRN (04:31)
[2020-08-31] MEDS ORDERED: *HR* Dextrose 50 % in Water (Vial) 50 ML VIAL IVP PRN (04:31)
[2020-08-31] MEDS ORDERED: Dextrose Gel 15 GM/37.5 ML TUBE PO PRN ×2 (04:31)
[2020-08-31] MEDS ORDERED: Perflutren Lipid Microsphere 1.3 ML in 0.9 % Sodium Chloride 8.7 ML IVP PRN (04:36)
[2020-08-31] MEDS: DilTIAZem CD (24hr) 180 MG CAP.ER.24H PO SCH (08:01)
[2020-08-31] MEDS: Insulin LISPRO 300 UNITS/3 ML VIAL SUBQ SCH ×4 (08:01→21:10)
[2020-08-31] MEDS: Apixaban 5 MG TABLET PO SCH ×2 (08:01→21:07)
[2020-08-31] MEDS ORDERED: *HR* LORazepam 0.5 MG TABLET PO SCH (09:00)
[2020-08-31] MEDS ORDERED: Insulin DETEMIR 100 UNIT/ML X5UNITS SUBQ SCH ×3 (09:00→21:00)
[2020-08-31] MEDS: Tiotropium 10 INH DOSE IH SCH (09:32)
[2020-08-31] MEDS: Budesonide/Formoterol 160/4.5 1 PUFF INH IH SCH ×2 (09:33→22:56)
[2020-08-31 12:12] LABS: Estimated Average Glucose 128 mg/dl; Hemoglobin A1C 6.1 %
[2020-08-31 12:29] LABS: Folate 12.3 ng/mL (3.0-16.0)
[2020-08-31 13:51] LABS: VBG HCO3 28 mEq/L (21-27); VBG PCO2 52 mmHg (41-51); VBG PH 7.33 pH Units (7.32-7.42); VBG PO2 140 mmHg (25-50)
[2020-08-31] MEDS: Lithium Carbonate 300 MG CAPSULE PO SCH (21:07)
[2020-08-31] MEDS: *HR* LORazepam 0.5 MG TABLET PO SCH (21:07)
[2020-09-01 05:05] LABS: Hemoglobin 15.5 g/dL (12.9-16.9); Mean Platelet Volume 9.1 fL (9.4-12.4)
[2020-09-01 05:07] LABS: Hematocrit 47.6 % (37.5-50.1); Immature Platelets 1.4 % (1.1-6.1); Mean Corpuscular HGB Conc 32.6 g/dL (31.6-35.5); Mean Corpuscular Hemoglobin 31.6 pg (28.0-33.3); Mean Corpuscular Volume 96.9 fL (83.0-100.0); Red Blood Count 4.91 M/mcL (4.19-5.50); Red Cell Distribution Width 13.9 % (11.5-14.5); White Blood Count 8.8 K/mcL (4.3-11.1)
[2020-09-01 05:25] LABS: BUN/Creatinine Ratio 15 (6-26); Blood Urea Nitrogen 18 mg/dL (8-23); Calcium 9.8 mg/dL (8.6-10.3); Carbon Dioxide 26 mEq/L (23-29); Chloride 103 mEq/L (98-107); Glucose 182 mg/dL (70-105); Magnesium 1.9 mg/dL (1.6-2.6); Osmolality,Calculated 287 (280-300); Phosphorous 3.2 mg/dL (2.7-4.5); Potassium 4.3 mEq/L (3.5-5.1); Sodium 135 mEq/L (136-145); eGFR For African Americans > 60 (> 60); eGFR For Non-African Americans > 60 (> 60)
[2020-09-01] MEDS: Insulin LISPRO 300 UNITS/3 ML VIAL SUBQ SCH ×4 (08:13→21:05)
[2020-09-01] MEDS: Cholecalciferol (D-3) 1,000 UNIT (25MCG) TABLET PO SCH (08:14)
[2020-09-01] MEDS: DilTIAZem CD (24hr) 180 MG CAP.ER.24H PO SCH (08:14)
[2020-09-01] MEDS: Lithium Carbonate 300 MG CAPSULE PO SCH ×2 (08:14→20:10)
[2020-09-01] MEDS: Apixaban 5 MG TABLET PO SCH ×2 (08:15→20:10)
[2020-09-01] MEDS: *HR* LORazepam 0.5 MG TABLET PO SCH (08:15)
[2020-09-01] MEDS: Tiotropium 10 INH DOSE IH SCH (10:04)
[2020-09-01] MEDS: Budesonide/Formoterol 160/4.5 1 PUFF INH IH SCH ×2 (10:05→22:43)
[2020-09-01] MEDS ORDERED: Nicotine 2 MG GUM BC PRN (16:12)
[2020-09-01] MEDS: Nicotine 7 MG PATCH.TD24 TD SCH (16:58)
[2020-09-01] MEDS: *HR* LORazepam 1 MG TABLET PO SCH (20:10)
[2020-09-01] MEDS: Melatonin 3 MG TABLET PO SCH (20:11)
[2020-09-01] MEDS: traZODone 50 MG TABLET PO SCH (20:11)
[2020-09-01] MEDS ORDERED: Insulin DETEMIR 100 UNIT/ML X5UNITS SUBQ SCH (21:00)
[2020-09-02 04:25] LABS: Hematocrit 44.8 % (37.5-50.1); Hemoglobin 14.6 g/dL (12.9-16.9); Immature Platelets 1.8 % (1.1-6.1); Mean Corpuscular HGB Conc 32.6 g/dL (31.6-35.5); Mean Corpuscular Hemoglobin 30.7 pg (28.0-33.3); Mean Corpuscular Volume 94.1 fL (83.0-100.0); Mean Platelet Volume 8.9 fL (9.4-12.4); Red Blood Count 4.76 M/mcL (4.19-5.50); Red Cell Distribution Width 13.7 % (11.5-14.5); White Blood Count 8.2 K/mcL (4.3-11.1)
[2020-09-02 04:40] LABS: BUN/Creatinine Ratio 15 (6-26); Blood Urea Nitrogen 16 mg/dL (8-23); Calcium 10.1 mg/dL (8.6-10.3); Carbon Dioxide 27 mEq/L (23-29); Chloride 104 mEq/L (98-107); Glucose 203 mg/dL (70-105); Magnesium 1.9 mg/dL (1.6-2.6); Osmolality,Calculated 289 (280-300); Phosphorous 4.1 mg/dL (2.7-4.5); Potassium 4.3 mEq/L (3.5-5.1); Sodium 136 mEq/L (136-145); eGFR For African Americans > 60 (> 60); eGFR For Non-African Americans > 60 (> 60)
[2020-09-02] MEDS: Nicotine 7 MG PATCH.TD24 TD SCH (08:00)
[2020-09-02] MEDS: *HR* LORazepam 0.5 MG TABLET PO SCH (08:01)
[2020-09-02] MEDS: Apixaban 5 MG TABLET PO SCH ×2 (08:01→20:17)
[2020-09-02] MEDS: Cholecalciferol (D-3) 1,000 UNIT (25MCG) TABLET PO SCH (08:02)
[2020-09-02] MEDS: Lithium Carbonate 300 MG CAPSULE PO SCH ×2 (08:02→20:18)
[2020-09-02] MEDS: Insulin LISPRO 300 UNITS/3 ML VIAL SUBQ SCH ×5 (08:24→20:19)
[2020-09-02] MEDS ORDERED: Metoprolol XL (24 HR) Succ 50 MG TAB.ER.24H PO SCH (09:00)
[2020-09-02] MEDS: DilTIAZem CD (24hr) 120 MG CAP.ER.24H PO SCH (10:06)
[2020-09-02] MEDS: Tiotropium 10 INH DOSE IH SCH (10:42)
[2020-09-02] MEDS: Budesonide/Formoterol 160/4.5 1 PUFF INH IH SCH ×2 (10:43→22:38)
[2020-09-02] MEDS: *HR* LORazepam 1 MG TABLET PO SCH (20:17)
[2020-09-02] MEDS: Metoprolol XL (24 HR) Succ 50 MG TAB.ER.24H PO SCH (20:18)
[2020-09-02] MEDS: traZODone 50 MG TABLET PO SCH (20:18)
[2020-09-02] MEDS: Melatonin 3 MG TABLET PO SCH (20:18)
[2020-09-02] MEDS ORDERED: Insulin DETEMIR 100 UNIT/ML X5UNITS SUBQ SCH (21:00)
[2020-09-03 06:20] LABS: Hemoglobin 15.2 g/dL (12.9-16.9)
[2020-09-03 06:21] LABS: Hematocrit 46.5 % (37.5-50.1); Immature Platelets 1.8 % (1.1-6.1); Mean Corpuscular HGB Conc 32.7 g/dL (31.6-35.5); Mean Corpuscular Hemoglobin 31.4 pg (28.0-33.3); Mean Corpuscular Volume 96.1 fL (83.0-100.0); Mean Platelet Volume 9.4 fL (9.4-12.4); Red Blood Count 4.84 M/mcL (4.19-5.50); Red Cell Distribution Width 13.5 % (11.5-14.5); White Blood Count 7.4 K/mcL (4.3-11.1)
[2020-09-03 06:45] LABS: BUN/Creatinine Ratio 16 (6-26); Blood Urea Nitrogen 19 mg/dL (8-23); Calcium 10.3 mg/dL (8.6-10.3); Carbon Dioxide 27 mEq/L (23-29); Chloride 101 mEq/L (98-107); Glucose 206 mg/dL (70-105); Magnesium 1.8 mg/dL (1.6-2.6); Osmolality,Calculated 288 (280-300); Potassium 4.1 mEq/L (3.5-5.1); Sodium 135 mEq/L (136-145); eGFR For African Americans > 60 (> 60); eGFR For Non-African Americans > 60 (> 60)
[2020-09-03] MEDS: Lithium Carbonate 300 MG CAPSULE PO SCH ×2 (07:53→20:10)
[2020-09-03] MEDS: Cholecalciferol (D-3) 1,000 UNIT (25MCG) TABLET PO SCH (07:53)
[2020-09-03] MEDS: Apixaban 5 MG TABLET PO SCH ×2 (07:54→20:10)
[2020-09-03] MEDS: Nicotine 7 MG PATCH.TD24 TD SCH (07:54)
[2020-09-03] MEDS: DilTIAZem CD (24hr) 120 MG CAP.ER.24H PO SCH (07:54)
[2020-09-03] MEDS: *HR* LORazepam 0.5 MG TABLET PO SCH (07:54)
[2020-09-03] MEDS: Insulin LISPRO 300 UNITS/3 ML VIAL SUBQ SCH ×7 (07:55→20:09)
[2020-09-03] MEDS: Tiotropium 10 INH DOSE IH SCH (10:55)
[2020-09-03] MEDS: Budesonide/Formoterol 160/4.5 1 PUFF INH IH SCH ×2 (10:55→20:45)
[2020-09-03] MEDS: Metoprolol XL (24 HR) Succ 50 MG TAB.ER.24H PO SCH (20:10)
[2020-09-03] MEDS: *HR* LORazepam 1 MG TABLET PO SCH (20:10)
[2020-09-03] MEDS: Melatonin 3 MG TABLET PO SCH (20:11)
[2020-09-03] MEDS: traZODone 50 MG TABLET PO SCH (20:19)
[2020-09-03] MEDS ORDERED: Insulin DETEMIR 100 UNIT/ML X5UNITS SUBQ SCH (21:00)
[2020-09-04] MEDS: Nicotine 7 MG PATCH.TD24 TD SCH (07:41)
[2020-09-04] MEDS: Lithium Carbonate 300 MG CAPSULE PO SCH (07:42)
[2020-09-04] MEDS: DilTIAZem CD (24hr) 120 MG CAP.ER.24H PO SCH (07:42)
[2020-09-04] MEDS: Insulin LISPRO 300 UNITS/3 ML VIAL SUBQ SCH ×6 (07:42→16:25)
[2020-09-04] MEDS: Apixaban 5 MG TABLET PO SCH (07:43)
[2020-09-04] MEDS: *HR* LORazepam 0.5 MG TABLET PO SCH (07:43)
[2020-09-04] MEDS: Cholecalciferol (D-3) 1,000 UNIT (25MCG) TABLET PO SCH (07:43)
[2020-09-04] MEDS: Tiotropium 10 INH DOSE IH SCH (07:49)
[2020-09-04] MEDS: Budesonide/Formoterol 160/4.5 1 PUFF INH IH SCH (07:50)
[2020-09-04 14:37] VITALS: BP 125/76
[2020-09-04 15:21] LABS: Adenovirus Not Detected (Not Detect); Coronavirus 229E Not Detected (Not Detect); Coronavirus HKU1 Not Detected (Not Detect); Coronavirus NL63 Not Detected (Not Detect); Coronavirus OC43 Not Detected (Not Detect); SARS-CoV-2 Not Detected (Not Detect)
[2020-09-04 15:22] LABS: Bordetella Pertussis Not Detected (Not Detect); Chlamydophila pneumoniae Not Detected (Not Detect); Human Metapneumovirus Not Detected (Not Detect); Human Rhinovirus/Enterovirus Not Detected (Not Detect); Influenza A Subtype 2009 H1 Not Detected (Not Detect); Influenza B Not Detected (Not Detect); Mycoplasma pneumoniae Not Detected (Not Detect); Parainfluenza Virus 1 Not Detected (Not Detect); Parainfluenza Virus 2 Not Detected (Not Detect); Parainfluenza Virus 3 Not Detected (Not Detect); Parainfluenza Virus 4 Not Detected (Not Detect); Respiratory Syncytial Virus Not Detected (Not Detect)
== END 2020-09-04 19:18 ==
LOC: EMEROOARM 22:57 → 3ANU 22:57 → SUATTDRO 08-31 03:50 → 3ANU 08-31 05:24
PROVIDERS: ADMIT Internal Medicine; ATTEND Family Medicine

== ENCOUNTER 2021-09-07 17:23 | Inpatient (IN) ==
[2021-09-07] MEDS ORDERED: 0.9 % Sodium Chloride 1,000 ML IVC ONE (19:06)
[2021-09-07 19:30] LABS: Basophils % 0.2 %; Eosinophils # 0.1 K/mcL (0.0-0.6); Eosinophils % 1.2 %; Hematocrit 49.1 % (37.5-50.1); Hemoglobin 15.8 g/dL (12.9-16.9); Immature Granulocytes % 0.4 % (0-4); Lymphocytes # 1.2 K/mcL (0.6-4.6); Lymphocytes % 10.2 %; Mean Corpuscular HGB Conc 32.2 g/dL (31.6-35.5); Mean Corpuscular Hemoglobin 31.5 pg (28.0-33.3); Mean Corpuscular Volume 97.8 fL (83.0-100.0); Mean Platelet Volume 9.4 fL (9.4-12.4); Monocytes # 0.7 K/mcL (0.0-1.3); Monocytes % 5.5 %; Platelet Count 107 K/mcL (140-400); Red Blood Count 5.02 M/mcL (4.19-5.50); Red Cell Distribution Width 13.8 % (11.5-14.5); Segmented Neutrophils % 82.5 %; White Blood Count 12.1 K/mcL (4.3-11.1)
[2021-09-07 19:55] LABS: Alanine Aminotransferase 13 Units/L (7-52); Albumin 4.2 g/dL (3.5-5.7); Albumin/Globulin Ratio 1.6 (1.1-2.2); Alkaline Phosphatase 62 Units/L (34-104); Aspartate Amino Transferase 19 Units/L (13-39); BUN/Creatinine Ratio 13 (6-26); Bilirubin,Total 0.8 mg/dL (0.3-1.0); Blood Urea Nitrogen 15 mg/dL (8-23); Calcium 10.2 mg/dL (8.6-10.3); Carbon Dioxide 26 mEq/L (23-29); Chloride 104 mEq/L (98-107); Globulin 2.6 g/dL (2.4-3.5); Glucose 151 mg/dL (70-105); Osmolality,Calculated 290 (280-300); Potassium 4.5 mEq/L (3.5-5.1); Sodium 138 mEq/L (136-145); Total Protein 6.8 g/dL (6.4-8.9); eGFR For African Americans > 60 (> 60); eGFR For Non-African Americans > 60 (> 60)
[2021-09-07] MEDS ORDERED: 0.9 % Sodium Chloride 1,000 ML IVC SCH (20:45)
[2021-09-07] MEDS ORDERED: Naloxone 0.4 MG/ML INJ IVP PRN (20:59)
[2021-09-07 21:24] LABS: Bilirubin,Urine Negative (Negative); Blood,Urine Negative (Negative); Clarity,Urine Clear (Clear); Color,Urine Light-Yellow (Yellow); Glucose,Urine (UA) Normal (Normal); Ketones,Urine Negative (Negative); Leukocyte Esterase,Urine Negative (Negative); Nitrite,Urine Negative (Negative); Protein,Urine Negative (Neg-Trace); Urobilinogen,Urine Normal (Normal)
[2021-09-07 22:11] LABS: VBG HCO3 27 mEq/L (21-27); VBG PCO2 50 mmHg (41-51); VBG PH 7.33 pH Units (7.32-7.42); VBG PO2 46 mmHg (25-50)
[2021-09-07 23:17] LABS: ABG Base Excess -1 mEq/L (-2 to 3); ABG HCO3 24 mEq/L (21-27); ABG Oxygen Saturation 86 % (95-98); ABG PCO2 37 mmHg (35-45); ABG PH 7.42 pH Units (7.32-7.45); ABG PO2 51 mmHg (85-104); ABG TCO2 25 mEq/L (20-26)
[2021-09-07] MEDS: Ipratropium/Albuterol Neb 3 ML IH PRN (23:25)
[2021-09-08] MEDS ORDERED: D5% in Water 1,000 ML IVC PRN (02:37)
[2021-09-08] MEDS ORDERED: *HR* Dextrose 50 % in Water (Syg) 50 ML SYRINGE IVP PRN (02:37)
[2021-09-08] MEDS ORDERED: Dextrose 4 GM Chewable Tablets PO PRN ×2 (02:37)
[2021-09-08 04:56] LABS: Basophils % 0.3 %; Mean Platelet Volume 9.6 fL (9.4-12.4)
[2021-09-08 04:58] LABS: Hematocrit 49.4 % (37.5-50.1); Hemoglobin 15.8 g/dL (12.9-16.9); Immature Granulocytes % 0.3 % (0-4); Immature Platelets 2.1 % (1.1-6.1); Lymphocytes # 0.4 K/mcL (0.6-4.6); Lymphocytes % 5.4 %; Mean Corpuscular Hemoglobin 31.2 pg (28.0-33.3); Mean Corpuscular Volume 97.4 fL (83.0-100.0); Monocytes # 0.4 K/mcL (0.0-1.3); Monocytes % 6.2 %; Neutrophils # 6.2 K/mcL (1.6-8.9); Platelet Count 106 K/mcL (140-400); Red Blood Count 5.07 M/mcL (4.19-5.50); Red Cell Distribution Width 13.9 % (11.5-14.5); Segmented Neutrophils % 87.8 %; White Blood Count 7.1 K/mcL (4.3-11.1)
[2021-09-08 05:01] LABS: INR 1.3; Prothrombin Time 14.4 Seconds (9.4-12.1)
[2021-09-08 06:40] LABS: Thyroid Stimulating Hormone 1.184 mcIU/mL (0.340-5.600)
[2021-09-08] MEDS: 0.9 % Sodium Chloride 1,000 ML IVC SCH ×2 (07:11→16:14)
[2021-09-08] MEDS: Insulin LISPRO 300 UNITS/3 ML VIAL SUBQ SCH ×3 (07:52→16:17)
[2021-09-08] MEDS: Azithromycin 500 MG in 0.9 % Sodium Chloride 250 ML IVPB SCH (07:58)
[2021-09-08 08:24] LABS: Albumin 3.8 g/dL (3.5-5.7); Albumin/Globulin Ratio 1.7 (1.1-2.2); Bilirubin,Direct 0.4 mg/dL (0.0-0.2); Bilirubin,Total 1.4 mg/dL (0.3-1.0); Calcium 9.8 mg/dL (8.6-10.3); Globulin 2.3 g/dL (2.4-3.5); Magnesium 1.8 mg/dL (1.6-2.6); Phosphorous 2.7 mg/dL (2.7-4.5); Potassium 4.4 mEq/L (3.5-5.1); Total Protein 6.1 g/dL (6.4-8.9)
[2021-09-08] MEDS ORDERED: cefTRIAXone 1,000 MG in 0.9 % Sodium Chloride 10 ML IVP SCH (09:00)
[2021-09-08 09:24] LABS: Estimated Average Glucose 128 mg/dl; Hemoglobin A1C 6.1 %
[2021-09-08] MEDS ORDERED: *HR* Metoprolol 5 MG/5 ML VIAL IVP ONE (09:27)
[2021-09-08 10:19] LABS: ABG Base Excess -4 mEq/L (-2 to 3); ABG HCO3 23 mEq/L (21-27); ABG Oxygen Saturation 88 % (95-98); ABG PCO2 48 mmHg (35-45); ABG PH 7.28 pH Units (7.32-7.45); ABG PO2 63 mmHg (85-104); ABG TCO2 24 mEq/L (20-26)
[2021-09-08] MEDS ORDERED: Norepinephrine 4 MG/254 ML IV.SOLN IVC SCH ×2 (10:45→14:30)
[2021-09-08] MEDS ORDERED: Naloxone 0.4 MG/ML INJ IVP PRN (10:54)
[2021-09-08] MEDS ORDERED: Lidocaine -MPF 1% 5 ML AMPUL INFILT ONE (12:09)
[2021-09-08] MEDS: Dexmedetomidine HCl 400 MCG/100 ML MLS IVC SCH (12:13)
[2021-09-08] MEDS: FentaNYL (PF) 1,000 MCG/100 ML IV.SOLN IVC SCH (12:40)
[2021-09-08 14:11] LABS: ABG Base Excess -2 mEq/L (-2 to 3); ABG HCO3 26 mEq/L (21-27); ABG Oxygen Saturation 87 % (95-98); ABG PCO2 59 mmHg (35-45); ABG PH 7.26 pH Units (7.32-7.45); ABG PO2 62 mmHg (85-104); ABG TCO2 28 mEq/L (20-26); Blood Gas Modality ASSIST CONTROL; Blood Gas VT 500 cc
[2021-09-08] MEDS ORDERED: *HR* Midazolam HCl 5 MG/5 ML VIAL IVP ONE (14:21)
[2021-09-08] MEDS ORDERED: *HR* Heparin 5,000 UNIT/ML VIAL SQ SCH (14:30)
[2021-09-08] MEDS: Norepinephrine 32 MG/250 ML IV.SOLN IVC SCH ×2 (15:00→20:53)
[2021-09-08 15:44] LABS: Uric Acid 5.7 mg/dL (2.3-7.6)
[2021-09-08] MEDS ORDERED: Phenylephrine 20 MG in 0.9 % Sodium Chloride 250 ML IVC SCH (16:00)
[2021-09-08] MEDS: Artificial Tears SOLN 15 ML BOTTLE BOTH EYES SCH ×3 (16:12→20:14)
[2021-09-08] MEDS: Piperacillin/Tazobactam 3.375 GM in 0.9 % Sodium Chloride Mini Bag 100 ML IVPB SCH ×2 (16:13→20:53)
[2021-09-08] MEDS: Pantoprazole 40 MG VIAL IVP SCH (16:14)
[2021-09-08 16:50] LABS: ABG Base Excess -3 mEq/L (-2 to 3); ABG HCO3 25 mEq/L (21-27); ABG Oxygen Saturation 87 % (95-98); ABG PCO2 51 mmHg (35-45); ABG PO2 59 mmHg (85-104); ABG TCO2 26 mEq/L (20-26); Blood Gas VT 450 cc
[2021-09-08] MEDS: Ringers Solution, Lactated 1,000 ML IVC SCH (17:08)
[2021-09-08] MEDS: Phenylephrine 100 MG in 0.9 % Sodium Chloride 250 ML IVC SCH ×3 (17:43→23:01)
[2021-09-08] MEDS ORDERED: Amiodarone Premix 150 MG/100 ML BAG IVPB ONE (17:55)
[2021-09-08] MEDS ORDERED: Amiodarone 450 MG in 0.9 % Sodium Chloride Excel Bg 241 ML IVC ONE (17:55)
[2021-09-08] MEDS ORDERED: *HR* Heparin 5,000 UNIT/ML VIAL IVP PRN ×2 (17:56)
[2021-09-08] MEDS ORDERED: *HR* Heparin 5,000 UNIT/ML VIAL IVP ONE (17:56)
[2021-09-08] MEDS ORDERED: Amiodarone Premix 360 MG/200 ML BAG IVC ONE (18:10)
[2021-09-08 18:26] LABS: Sodium, Urine 40.8 mEq/L
[2021-09-08] MEDS: Heparin 25,000UNIT/250ML 1/2NS 25,000 UNIT/250 ML IV.SOLN IVC SCH (18:41)
[2021-09-08] MEDS ORDERED: *HR* Metoprolol 5 MG/5 ML VIAL IVP STA (19:24)
[2021-09-08] MEDS ORDERED: 0.9 % Sodium Chloride 500 ML ONE (19:26)
[2021-09-08] MEDS: Budesonide/Formoterol 160/4.5 1 PUFF INH IH SCH (19:40)
[2021-09-08] MEDS ORDERED: Acetaminophen IV 1,000 MG/100 ML BAG IVPB ONE (20:10)
[2021-09-08] MEDS: Chlorhexidine Rinse 15 ML MOUTHWASH MM SCH (20:40)
[2021-09-09] MEDS: Artificial Tears SOLN 15 ML BOTTLE BOTH EYES SCH ×6 (00:07→19:50)
[2021-09-09] MEDS ORDERED: Amiodarone Premix 360 MG/200 ML BAG IVC ONE (00:11)
[2021-09-09] MEDS: Amiodarone Premix 360 MG/200 ML BAG IVC SCH ×3 (00:18→22:54)
[2021-09-09] MEDS: Ringers Solution, Lactated 1,000 ML IVC SCH ×3 (01:03→19:51)
[2021-09-09 02:02] LABS: Heparin anti-factor XA UFH 0.68 IU/mL (0.30-0.70)
[2021-09-09] MEDS: Norepinephrine 32 MG/250 ML IV.SOLN IVC SCH ×3 (02:04→22:54)
[2021-09-09] MEDS: Dexmedetomidine HCl 400 MCG/100 ML MLS IVC SCH ×2 (02:04→15:13)
[2021-09-09] MEDS: Phenylephrine 100 MG in 0.9 % Sodium Chloride 250 ML IVC SCH ×5 (02:05→22:55)
[2021-09-09 02:06] LABS: INR 2.4; Prothrombin Time 26.5 Seconds (9.4-12.1)
[2021-09-09 03:38] LABS: VBG Ionized Calcium 1.12 mmol/L (1.15-1.35)
[2021-09-09 03:41] LABS: ABG Base Excess -8 mEq/L (-2 to 3); ABG HCO3 19 mEq/L (21-27); ABG Oxygen Saturation 93 % (95-98); ABG PCO2 43 mmHg (35-45); ABG PH 7.26 pH Units (7.32-7.45); ABG PO2 77 mmHg (85-104); ABG TCO2 20 mEq/L (20-26); Blood Gas Modality ASSIST CONTROL; Blood Gas VT 450 cc
[2021-09-09 03:43] LABS: Basophils % 0.6 %; Hematocrit 47.6 % (37.5-50.1); Red Cell Distribution Width 14.5 % (11.5-14.5)
[2021-09-09 03:45] LABS: Basophils # 0.1 K/mcL (0.0-0.2); Eosinophils % 0.4 %; Hemoglobin 15.3 g/dL (12.9-16.9); Immature Platelets 2.1 % (1.1-6.1); Lymphocytes # 0.8 K/mcL (0.6-4.6); Lymphocytes % 9.7 %; Mean Corpuscular HGB Conc 32.1 g/dL (31.6-35.5); Mean Corpuscular Hemoglobin 31.5 pg (28.0-33.3); Mean Corpuscular Volume 97.9 fL (83.0-100.0); Mean Platelet Volume 9.9 fL (9.4-12.4); Monocytes # 0.6 K/mcL (0.0-1.3); Monocytes % 7.5 %; Neutrophils # 6.4 K/mcL (1.6-8.9); Platelet Count 111 K/mcL (140-400); Red Blood Count 4.86 M/mcL (4.19-5.50); Segmented Neutrophils % 79.8 %
[2021-09-09 04:05] LABS: Calcium 8.1 mg/dL (8.6-10.3); Magnesium 1.7 mg/dL (1.6-2.6); Phosphorous 3.9 mg/dL (2.7-4.5); Potassium 4.3 mEq/L (3.5-5.1)
[2021-09-09] MEDS: Piperacillin/Tazobactam 3.375 GM in 0.9 % Sodium Chloride Mini Bag 100 ML IVPB SCH ×3 (04:26→19:50)
[2021-09-09 04:30] LABS: Platelet Estimate Slight Decrease (Normal)
[2021-09-09] MEDS: FentaNYL (PF) 1,000 MCG/100 ML IV.SOLN IVC SCH ×2 (04:40→16:41)
[2021-09-09] MEDS ORDERED: Calcium Gluconate 1gm/50mL 1 GM/50 ML BAG IVPB PRN (05:30)
[2021-09-09] MEDS ORDERED: Potassium Chloride 40 MEQ/200 ML BAG IVPB PRN (05:30)
[2021-09-09] MEDS ORDERED: Perflutren Lipid Microsphere 1.3 ML in 0.9 % Sodium Chloride 8.7 ML IVP PRN (05:43)
[2021-09-09] MEDS: Budesonide/Formoterol 160/4.5 1 PUFF INH IH SCH ×2 (07:27→21:14)
[2021-09-09] MEDS: Heparin 25,000UNIT/250ML 1/2NS 25,000 UNIT/250 ML IV.SOLN IVC SCH ×2 (07:49→21:20)
[2021-09-09] MEDS: Pantoprazole 40 MG VIAL IVP SCH (08:05)
[2021-09-09] MEDS: Azithromycin 500 MG in 0.9 % Sodium Chloride 250 ML IVPB SCH (08:06)
[2021-09-09] MEDS: Chlorhexidine Rinse 15 ML MOUTHWASH MM SCH ×2 (08:06→19:50)
[2021-09-09] MEDS: Insulin LISPRO 300 UNITS/3 ML VIAL SUBQ SCH ×2 (11:47→17:54)
[2021-09-10] MEDS: Insulin LISPRO 300 UNITS/3 ML VIAL SUBQ SCH ×5 (01:04→23:23)
[2021-09-10] MEDS: Artificial Tears SOLN 15 ML BOTTLE BOTH EYES SCH ×7 (01:04→23:23)
[2021-09-10] MEDS: FentaNYL (PF) 1,000 MCG/100 ML IV.SOLN IVC SCH ×3 (01:04→16:12)
[2021-09-10 04:03] LABS: INR 1.6; Prothrombin Time 18.3 Seconds (9.4-12.1)
[2021-09-10 04:06] LABS: Hemoglobin 14.1 g/dL (12.9-16.9); Mean Corpuscular Volume 95.8 fL (83.0-100.0)
[2021-09-10 04:08] LABS: Hematocrit 43.4 % (37.5-50.1); Mean Corpuscular HGB Conc 32.5 g/dL (31.6-35.5); Mean Corpuscular Hemoglobin 31.1 pg (28.0-33.3); Red Blood Count 4.53 M/mcL (4.19-5.50); Red Cell Distribution Width 14.7 % (11.5-14.5); White Blood Count 11.1 K/mcL (4.3-11.1)
[2021-09-10 04:13] LABS: Platelet Count 99 K/mcL (140-400)
[2021-09-10 04:14] LABS: Albumin 2.9 g/dL (3.5-5.7); Albumin/Globulin Ratio 1.1 (1.1-2.2); Bilirubin,Total 0.8 mg/dL (0.3-1.0); Calcium 8.3 mg/dL (8.6-10.3); Globulin 2.7 g/dL (2.4-3.5); Magnesium 2.2 mg/dL (1.6-2.6); Phosphorous 2.4 mg/dL (2.7-4.5); Potassium 4.4 mEq/L (3.5-5.1); Total Protein 5.6 g/dL (6.4-8.9)
[2021-09-10] MEDS: Ringers Solution, Lactated 1,000 ML IVC SCH ×3 (04:17→14:54)
[2021-09-10 04:18] LABS: VBG Ionized Calcium 1.14 mmol/L (1.15-1.35)
[2021-09-10] MEDS: Ipratropium/Albuterol Neb 3 ML IH PRN ×5 (04:25→19:51)
[2021-09-10] MEDS: Acetylcysteine 10% 2 ML INHSOL IH SCH ×5 (04:25→19:51)
[2021-09-10 04:42] LABS: ABG Base Excess -3 mEq/L (-2 to 3); ABG HCO3 23 mEq/L (21-27); ABG Oxygen Saturation 93 % (95-98); ABG PCO2 43 mmHg (35-45); ABG PH 7.34 pH Units (7.32-7.45); ABG PO2 69 mmHg (85-104); ABG TCO2 24 mEq/L (20-26); Blood Gas Modality ASSIST CONTROL; Blood Gas VT 450 cc
[2021-09-10] MEDS: Piperacillin/Tazobactam 3.375 GM in 0.9 % Sodium Chloride Mini Bag 100 ML IVPB SCH ×3 (05:07→18:14)
[2021-09-10 06:07] LABS: Lymphocytes # 0.4 K/mcL (0.6-4.6); Monocytes # 0.9 K/mcL (0.0-1.3); Neutrophils # 9.8 K/mcL (1.6-8.9); Platelet Estimate Slight Decrease (Normal)
[2021-09-10] MEDS: Dexmedetomidine HCl 400 MCG/100 ML MLS IVC SCH ×3 (06:08→19:57)
[2021-09-10] MEDS: Heparin 25,000UNIT/250ML 1/2NS 25,000 UNIT/250 ML IV.SOLN IVC SCH ×3 (07:29→20:57)
[2021-09-10] MEDS: Azithromycin 500 MG in 0.9 % Sodium Chloride 250 ML IVPB SCH (07:51)
[2021-09-10] MEDS: Chlorhexidine Rinse 15 ML MOUTHWASH MM SCH ×2 (07:54→20:48)
[2021-09-10] MEDS: Pantoprazole 40 MG VIAL IVP SCH (07:54)
[2021-09-10] MEDS: Budesonide/Formoterol 160/4.5 1 PUFF INH IH SCH ×2 (07:56→19:51)
[2021-09-10] MEDS: Amiodarone Premix 360 MG/200 ML BAG IVC SCH ×2 (10:53→19:56)
[2021-09-10 11:49] LABS: Adenovirus Not Detected (Not Detect); Bordetella Pertussis Not Detected (Not Detect); Chlamydophila pneumoniae Not Detected (Not Detect); Coronavirus 229E Not Detected (Not Detect); Coronavirus HKU1 Not Detected (Not Detect); Coronavirus NL63 Not Detected (Not Detect); Coronavirus OC43 Not Detected (Not Detect); Human Metapneumovirus Not Detected (Not Detect); Human Rhinovirus/Enterovirus Not Detected (Not Detect); Influenza A Subtype 2009 H1 Not Detected (Not Detect); Influenza B Not Detected (Not Detect); Mycoplasma pneumoniae Not Detected (Not Detect); Parainfluenza Virus 1 Not Detected (Not Detect); Parainfluenza Virus 2 Not Detected (Not Detect); Parainfluenza Virus 3 Not Detected (Not Detect); Parainfluenza Virus 4 Not Detected (Not Detect); Respiratory Syncytial Virus Not Detected (Not Detect); SARS-CoV-2 Not Detected (Not Detect)
[2021-09-10] MEDS: Phenylephrine 100 MG in 0.9 % Sodium Chloride 250 ML IVC SCH ×3 (12:05→21:02)
[2021-09-10] MEDS ORDERED: Vancomycin 2,000 MG/520 ML IV.SOLN IVPB SCH (20:00)
[2021-09-11] MEDS: Ipratropium/Albuterol Neb 3 ML IH PRN ×7 (00:09→23:41)
[2021-09-11] MEDS: Acetylcysteine 10% 2 ML INHSOL IH SCH ×7 (00:09→23:41)
[2021-09-11] MEDS: FentaNYL (PF) 1,000 MCG/100 ML IV.SOLN IVC SCH ×4 (00:23→23:55)
[2021-09-11] MEDS: Dexmedetomidine HCl 400 MCG/100 ML MLS IVC SCH ×4 (00:23→19:58)
[2021-09-11] MEDS: Ringers Solution, Lactated 1,000 ML IVC SCH ×3 (00:28→16:38)
[2021-09-11] MEDS: Artificial Tears SOLN 15 ML BOTTLE BOTH EYES SCH ×6 (03:07→23:02)
[2021-09-11] MEDS: Piperacillin/Tazobactam 3.375 GM in 0.9 % Sodium Chloride Mini Bag 100 ML IVPB SCH ×3 (03:07→17:55)
[2021-09-11] MEDS: Phenylephrine 100 MG in 0.9 % Sodium Chloride 250 ML IVC SCH ×2 (03:08→11:16)
[2021-09-11 04:12] LABS: VBG Ionized Calcium 1.17 mmol/L (1.15-1.35)
[2021-09-11 04:16] LABS: ABG Base Excess -3 mEq/L (-2 to 3); ABG HCO3 22 mEq/L (21-27); ABG Oxygen Saturation 95 % (95-98); ABG PCO2 39 mmHg (35-45); ABG PH 7.36 pH Units (7.32-7.45); ABG PO2 80 mmHg (85-104); ABG TCO2 23 mEq/L (20-26); Blood Gas VT 450 cc
[2021-09-11 04:26] LABS: Basophils % 0.8 %; Eosinophils % 0.1 %; Mean Corpuscular HGB Conc 32.4 g/dL (31.6-35.5)
[2021-09-11 04:28] LABS: Basophils # 0.1 K/mcL (0.0-0.2); Hematocrit 40.7 % (37.5-50.1); Hemoglobin 13.2 g/dL (12.9-16.9); INR 1.6; Immature Granulocytes % 3.2 % (0-4); Immature Platelets 6.1 % (1.1-6.1); Lymphocytes # 0.6 K/mcL (0.6-4.6); Lymphocytes % 4.7 %; Mean Corpuscular Hemoglobin 31.2 pg (28.0-33.3); Mean Corpuscular Volume 96.2 fL (83.0-100.0); Mean Platelet Volume 10.8 fL (9.4-12.4); Monocytes # 0.9 K/mcL (0.0-1.3); Monocytes % 6.6 %; Prothrombin Time 17.7 Seconds (9.4-12.1); Red Blood Count 4.23 M/mcL (4.19-5.50); Red Cell Distribution Width 14.9 % (11.5-14.5); Segmented Neutrophils % 84.6 %; White Blood Count 12.9 K/mcL (4.3-11.1)
[2021-09-11 04:42] LABS: Alanine Aminotransferase 21 Units/L (7-52); Albumin 2.8 g/dL (3.5-5.7); Albumin/Globulin Ratio 1.1 (1.1-2.2); Alkaline Phosphatase 53 Units/L (34-104); Aspartate Amino Transferase 28 Units/L (13-39); BUN/Creatinine Ratio 31 (6-26); Bilirubin,Total 0.7 mg/dL (0.3-1.0); Blood Urea Nitrogen 39 mg/dL (8-23); Calcium 8.4 mg/dL (8.6-10.3); Carbon Dioxide 22 mEq/L (23-29); Chloride 111 mEq/L (98-107); Globulin 2.6 g/dL (2.4-3.5); Glucose 314 mg/dL (70-105); Magnesium 2.3 mg/dL (1.6-2.6); Osmolality,Calculated 311 (280-300); Phosphorous 2.1 mg/dL (2.7-4.5); Potassium 4.5 mEq/L (3.5-5.1); Sodium 140 mEq/L (136-145); Total Protein 5.4 g/dL (6.4-8.9); eGFR For African Americans > 60 (> 60); eGFR For Non-African Americans 58 (> 60)
[2021-09-11 04:45] LABS: Neutrophils # 10.9 K/mcL (1.6-8.9); Platelet Count 82 K/mcL (140-400)
[2021-09-11] MEDS: Insulin LISPRO 300 UNITS/3 ML VIAL SUBQ SCH ×5 (05:08→23:04)
[2021-09-11] MEDS: Amiodarone Premix 360 MG/200 ML BAG IVC SCH ×2 (06:38→19:34)
[2021-09-11 06:43] LABS: Platelet Estimate Decreased (Normal)
[2021-09-11] MEDS: Budesonide/Formoterol 160/4.5 1 PUFF INH IH SCH ×2 (07:27→20:07)
[2021-09-11] MEDS: Pantoprazole 40 MG VIAL IVP SCH (07:51)
[2021-09-11] MEDS: Chlorhexidine Rinse 15 ML MOUTHWASH MM SCH ×2 (07:51→19:58)
[2021-09-11] MEDS: Azithromycin 250 MG TABLET PO SCH (07:51)
[2021-09-11] MEDS: Heparin 25,000UNIT/250ML 1/2NS 25,000 UNIT/250 ML IV.SOLN IVC SCH ×2 (08:57→19:35)
[2021-09-11] MEDS ORDERED: Vancomycin 2,000 MG/520 ML IV.SOLN IVPB SCH (12:00)
[2021-09-11] MEDS: Vancomycin 2,000 MG/520 ML IV.SOLN IVPB SCH (12:48)
[2021-09-11] MEDS ORDERED: Acetaminophen IV 1,000 MG/100 ML BAG IVPB ONE (14:47)
[2021-09-12] MEDS: Vancomycin 2,000 MG/520 ML IV.SOLN IVPB SCH (01:21)
[2021-09-12] MEDS: Dexmedetomidine HCl 400 MCG/100 ML MLS IVC SCH ×5 (02:03→19:47)
[2021-09-12] MEDS: Piperacillin/Tazobactam 3.375 GM in 0.9 % Sodium Chloride Mini Bag 100 ML IVPB SCH ×3 (02:53→18:57)
[2021-09-12 03:28] LABS: VBG Ionized Calcium 1.24 mmol/L (1.15-1.35)
[2021-09-12] MEDS: Acetylcysteine 10% 2 ML INHSOL IH SCH ×6 (03:30→23:27)
[2021-09-12] MEDS: Ipratropium/Albuterol Neb 3 ML IH PRN ×6 (03:30→23:27)
[2021-09-12 03:35] LABS: Hematocrit 38.6 % (37.5-50.1); Hemoglobin 12.8 g/dL (12.9-16.9); Mean Corpuscular HGB Conc 33.2 g/dL (31.6-35.5); Mean Corpuscular Hemoglobin 31.4 pg (28.0-33.3)
[2021-09-12 03:37] LABS: Basophils # 0.1 K/mcL (0.0-0.2); Basophils % 0.6 %; Eosinophils % 0.3 %; Immature Granulocytes % 7.2 % (0-4); Immature Platelets 5.6 % (1.1-6.1); Lymphocytes # 0.8 K/mcL (0.6-4.6); Lymphocytes % 6.4 %; Mean Corpuscular Volume 94.6 fL (83.0-100.0); Mean Platelet Volume 10.7 fL (9.4-12.4); Monocytes # 0.8 K/mcL (0.0-1.3); Monocytes % 6.3 %; Neutrophils # 9.5 K/mcL (1.6-8.9); Red Blood Count 4.08 M/mcL (4.19-5.50); Red Cell Distribution Width 14.9 % (11.5-14.5); Segmented Neutrophils % 79.2 %
[2021-09-12 03:40] LABS: Platelet Count 68 K/mcL (140-400)
[2021-09-12 03:47] LABS: Alanine Aminotransferase 19 Units/L (7-52); Albumin 2.6 g/dL (3.5-5.7); Alkaline Phosphatase 61 Units/L (34-104); Aspartate Amino Transferase 17 Units/L (13-39); BUN/Creatinine Ratio 36 (6-26); Bilirubin,Total 0.7 mg/dL (0.3-1.0); Blood Urea Nitrogen 46 mg/dL (8-23); Calcium 8.3 mg/dL (8.6-10.3); Carbon Dioxide 24 mEq/L (23-29); Chloride 113 mEq/L (98-107); Globulin 2.6 g/dL (2.4-3.5); Glucose 316 mg/dL (70-105); Magnesium 2.2 mg/dL (1.6-2.6); Osmolality,Calculated 318 (280-300); Phosphorous 2.6 mg/dL (2.7-4.5); Potassium 3.9 mEq/L (3.5-5.1); Sodium 142 mEq/L (136-145); Total Protein 5.2 g/dL (6.4-8.9); eGFR For African Americans > 60 (> 60); eGFR For Non-African Americans 57 (> 60)
[2021-09-12 04:10] LABS: ABG Base Excess -2 mEq/L (-2 to 3); ABG HCO3 24 mEq/L (21-27); ABG Oxygen Saturation 94 % (95-98); ABG PCO2 43 mmHg (35-45); ABG PH 7.35 pH Units (7.32-7.45); ABG PO2 72 mmHg (85-104); ABG TCO2 25 mEq/L (20-26); Blood Gas VT 450 cc
[2021-09-12] MEDS: Artificial Tears SOLN 15 ML BOTTLE BOTH EYES SCH ×6 (04:16→23:23)
[2021-09-12] MEDS: Insulin LISPRO 300 UNITS/3 ML VIAL SUBQ SCH ×7 (04:17→23:23)
[2021-09-12] MEDS: Ringers Solution, Lactated 1,000 ML IVC SCH ×4 (04:22→17:01)
[2021-09-12] MEDS: Heparin 25,000UNIT/250ML 1/2NS 25,000 UNIT/250 ML IV.SOLN IVC SCH (05:15)
[2021-09-12] MEDS ORDERED: *HR* Midazolam HCl 5 MG/5 ML VIAL IVP ONE ×2 (05:50→06:45)
[2021-09-12] MEDS: FentaNYL (PF) 1,000 MCG/100 ML IV.SOLN IVC SCH ×2 (06:29→21:07)
[2021-09-12] MEDS ORDERED: Furosemide 40 MG/4 ML VIAL IVP ONE ×2 (07:27→21:00)
[2021-09-12] MEDS: Amiodarone Premix 360 MG/200 ML BAG IVC SCH ×2 (07:28→17:52)
[2021-09-12] MEDS: Pantoprazole 40 MG VIAL IVP SCH (07:29)
[2021-09-12] MEDS: Chlorhexidine Rinse 15 ML MOUTHWASH MM SCH ×2 (07:29→19:56)
[2021-09-12] MEDS: Budesonide/Formoterol 160/4.5 1 PUFF INH IH SCH ×2 (07:34→20:05)
[2021-09-12] MEDS: Azithromycin 250 MG TABLET PO SCH (07:58)
[2021-09-12] MEDS: *HR* Heparin 5,000 UNIT/ML VIAL SQ SCH ×3 (09:37→21:58)
[2021-09-12] MEDS ORDERED: Dextrose 4 GM Chewable Tablets PO PRN ×2 (10:52)
[2021-09-12] MEDS ORDERED: D5% in Water 1,000 ML IVC PRN (10:52)
[2021-09-12] MEDS ORDERED: *HR* Dextrose 50 % in Water (Syg) 50 ML SYRINGE IVP PRN (10:52)
[2021-09-12 11:12] LABS: Phosphorous 3.1 mg/dL (2.7-4.5); Potassium 4.2 mEq/L (3.5-5.1)
[2021-09-12] MEDS: Insulin DETEMIR 100 UNIT/ML X5UNITS SUBQ SCH (11:42)
[2021-09-12] MEDS: Vancomycin 1,500 MG/265 ML IV.SOLN IVPB SCH (14:00)
[2021-09-12] MEDS: Norepinephrine 32 MG/250 ML IV.SOLN IVC SCH (14:19)
[2021-09-13] MEDS: Dexmedetomidine HCl 400 MCG/100 ML MLS IVC SCH ×5 (00:30→21:53)
[2021-09-13] MEDS: Vancomycin 1,500 MG/265 ML IV.SOLN IVPB SCH ×2 (01:31→13:58)
[2021-09-13] MEDS: Piperacillin/Tazobactam 3.375 GM in 0.9 % Sodium Chloride Mini Bag 100 ML IVPB SCH ×3 (02:09→18:50)
[2021-09-13 03:29] LABS: Mean Platelet Volume 11.2 fL (9.4-12.4)
[2021-09-13 03:31] LABS: Hematocrit 40.4 % (37.5-50.1); Immature Platelets 7.3 % (1.1-6.1); Lymphocytes # 0.8 K/mcL (0.6-4.6); Mean Corpuscular HGB Conc 32.2 g/dL (31.6-35.5); Mean Corpuscular Volume 96.2 fL (83.0-100.0); Red Cell Distribution Width 15.5 % (11.5-14.5); White Blood Count 13.2 K/mcL (4.3-11.1)
[2021-09-13 03:36] LABS: Platelet Count 77 K/mcL (140-400)
[2021-09-13 03:41] LABS: VBG Ionized Calcium 1.23 mmol/L (1.15-1.35)
[2021-09-13 03:48] LABS: Alanine Aminotransferase 16 Units/L (7-52); Albumin 2.7 g/dL (3.5-5.7); Alkaline Phosphatase 66 Units/L (34-104); Aspartate Amino Transferase 13 Units/L (13-39); BUN/Creatinine Ratio 40 (6-26); Blood Urea Nitrogen 53 mg/dL (8-23); Calcium 8.9 mg/dL (8.6-10.3); Carbon Dioxide 27 mEq/L (23-29); Chloride 117 mEq/L (98-107); Globulin 2.8 g/dL (2.4-3.5); Glucose 265 mg/dL (70-105); Osmolality,Calculated 334 (280-300); Phosphorous 3.4 mg/dL (2.7-4.5); Potassium 4.3 mEq/L (3.5-5.1); Sodium 150 mEq/L (136-145); Total Protein 5.5 g/dL (6.4-8.9); eGFR For African Americans > 60 (> 60); eGFR For Non-African Americans 54 (> 60)
[2021-09-13] MEDS: Ipratropium/Albuterol Neb 3 ML IH PRN ×6 (03:52→23:05)
[2021-09-13] MEDS: Acetylcysteine 10% 2 ML INHSOL IH SCH ×6 (03:52→23:05)
[2021-09-13] MEDS: Artificial Tears SOLN 15 ML BOTTLE BOTH EYES SCH ×6 (03:58→23:42)
[2021-09-13] MEDS: Insulin LISPRO 300 UNITS/3 ML VIAL SUBQ SCH ×6 (03:58→23:42)
[2021-09-13 04:27] LABS: Monocytes # 0.3 K/mcL (0.0-1.3); Neutrophils # 12.1 K/mcL (1.6-8.9); Platelet Estimate Decreased (Normal)
[2021-09-13] MEDS: Amiodarone Premix 360 MG/200 ML BAG IVC SCH ×2 (04:37→17:30)
[2021-09-13 04:39] LABS: ABG Base Excess 0 mEq/L (-2 to 3); ABG HCO3 28 mEq/L (21-27); ABG Oxygen Saturation 93 % (95-98); ABG PCO2 60 mmHg (35-45); ABG PH 7.28 pH Units (7.32-7.45); ABG PO2 78 mmHg (85-104); ABG TCO2 30 mEq/L (20-26); Blood Gas VT 450 cc
[2021-09-13] MEDS ORDERED: *HR* Metoprolol 5 MG/5 ML VIAL IVP ONE (05:15)
[2021-09-13] MEDS: *HR* Heparin 5,000 UNIT/ML VIAL SQ SCH ×3 (05:16→22:59)
[2021-09-13] MEDS: Ringers Solution, Lactated 1,000 ML IVC SCH ×3 (05:20→22:59)
[2021-09-13] MEDS: Budesonide/Formoterol 160/4.5 1 PUFF INH IH SCH ×2 (07:49→19:47)
[2021-09-13] MEDS: Pantoprazole 40 MG VIAL IVP SCH (08:37)
[2021-09-13] MEDS: Chlorhexidine Rinse 15 ML MOUTHWASH MM SCH ×2 (08:37→20:07)
[2021-09-13] MEDS: Insulin DETEMIR 100 UNIT/ML X5UNITS SUBQ SCH (08:38)
[2021-09-13] MEDS: Norepinephrine 32 MG/250 ML IV.SOLN IVC SCH (15:59)
[2021-09-13 16:42] LABS: BUN/Creatinine Ratio 43 (6-26); Blood Urea Nitrogen 56 mg/dL (8-23); Carbon Dioxide 29 mEq/L (23-29); Chloride 115 mEq/L (98-107); Glucose 413 mg/dL (70-105); Magnesium 2.1 mg/dL (1.6-2.6); Osmolality,Calculated 339 (280-300); Potassium 4.3 mEq/L (3.5-5.1); Sodium 148 mEq/L (136-145); eGFR For African Americans > 60 (> 60); eGFR For Non-African Americans 56 (> 60)
[2021-09-13] MEDS ORDERED: Furosemide 40 MG/4 ML VIAL IVP SCH (17:00)
[2021-09-13] MEDS: FentaNYL (PF) 1,000 MCG/100 ML IV.SOLN IVC SCH (17:47)
[2021-09-13] MEDS ORDERED: Insulin DETEMIR 100 UNIT/ML X5UNITS SUBQ SCH (21:00)
[2021-09-14] MEDS: Piperacillin/Tazobactam 3.375 GM in 0.9 % Sodium Chloride Mini Bag 100 ML IVPB SCH (03:15)
[2021-09-14] MEDS: Artificial Tears SOLN 15 ML BOTTLE BOTH EYES SCH ×4 (03:15→16:49)
[2021-09-14] MEDS: Ipratropium/Albuterol Neb 3 ML IH PRN ×6 (03:23→23:26)
[2021-09-14] MEDS: Acetylcysteine 10% 2 ML INHSOL IH SCH ×6 (03:23→23:26)
[2021-09-14 03:54] LABS: ABG Base Excess 3 mEq/L (-2 to 3); ABG HCO3 28 mEq/L (21-27); ABG Oxygen Saturation 94 % (95-98); ABG PCO2 45 mmHg (35-45); ABG PO2 70 mmHg (85-104); ABG TCO2 29 mEq/L (20-26); Blood Gas VT 450 cc
[2021-09-14 03:58] LABS: VBG Ionized Calcium 1.26 mmol/L (1.15-1.35)
[2021-09-14 04:06] LABS: Basophils # 0.1 K/mcL (0.0-0.2); Basophils % 0.5 %; Eosinophils % 0.2 %; Hematocrit 39.9 % (37.5-50.1); Hemoglobin 12.5 g/dL (12.9-16.9); Immature Granulocytes % 4.6 % (0-4); Immature Platelets 10.1 % (1.1-6.1); Lymphocytes # 0.9 K/mcL (0.6-4.6); Lymphocytes % 7.1 %; Mean Corpuscular HGB Conc 31.3 g/dL (31.6-35.5); Mean Corpuscular Hemoglobin 30.7 pg (28.0-33.3); Mean Platelet Volume 11.8 fL (9.4-12.4); Monocytes # 0.5 K/mcL (0.0-1.3); Monocytes % 3.9 %; Red Blood Count 4.07 M/mcL (4.19-5.50); Red Cell Distribution Width 15.8 % (11.5-14.5); Segmented Neutrophils % 83.7 %; White Blood Count 13.1 K/mcL (4.3-11.1)
[2021-09-14 04:07] LABS: Platelet Count 82 K/mcL (140-400)
[2021-09-14] MEDS: Insulin LISPRO 300 UNITS/3 ML VIAL SUBQ SCH (04:21)
[2021-09-14 04:25] LABS: BUN/Creatinine Ratio 47 (6-26); Blood Urea Nitrogen 65 mg/dL (8-23); Calcium 9.4 mg/dL (8.6-10.3); Carbon Dioxide 29 mEq/L (23-29); Chloride 117 mEq/L (98-107); Glucose 483 mg/dL (70-105); Magnesium 2.1 mg/dL (1.6-2.6); Osmolality,Calculated 354 (280-300); Potassium 4.3 mEq/L (3.5-5.1); Sodium 152 mEq/L (136-145); eGFR For African Americans > 60 (> 60); eGFR For Non-African Americans 52 (> 60)
[2021-09-14] MEDS ORDERED: *HR* Metoprolol 5 MG/5 ML VIAL IVP ONE (05:43)
[2021-09-14] MEDS: *HR* Heparin 5,000 UNIT/ML VIAL SQ SCH ×3 (05:50→22:18)
[2021-09-14] MEDS: Dexmedetomidine HCl 400 MCG/100 ML MLS IVC SCH ×3 (06:04→20:07)
[2021-09-14] MEDS: Amiodarone Premix 360 MG/200 ML BAG IVC SCH ×2 (06:05→18:20)
[2021-09-14] MEDS: Ringers Solution, Lactated 1,000 ML IVC SCH (06:50)
[2021-09-14] MEDS: Budesonide/Formoterol 160/4.5 1 PUFF INH IH SCH ×2 (07:27→20:07)
[2021-09-14] MEDS: Chlorhexidine Rinse 15 ML MOUTHWASH MM SCH ×2 (08:17→20:05)
[2021-09-14] MEDS: Pantoprazole 40 MG VIAL IVP SCH (08:17)
[2021-09-14] MEDS: FentaNYL (PF) 1,000 MCG/100 ML IV.SOLN IVC SCH (12:32)
[2021-09-14] MEDS: Lacri-Lube 3.5 GM TUBE BOTH EYES SCH ×2 (12:40→20:14)
[2021-09-14] MEDS: cefTRIAXone 2,000 MG in 0.9 % Sodium Chloride 20 ML IVP SCH (16:48)
[2021-09-14] MEDS: Docusate Oral Soln 100 MG/10 ML UDC GTUBE SCH (20:05)
[2021-09-14 20:59] LABS: Calcium 9.7 mg/dL (8.6-10.3); Potassium 4.6 mEq/L (3.5-5.1)
[2021-09-14] MEDS ORDERED: Divalproex (24 HR) 500 MG TABLET PO SCH (21:00)
[2021-09-14] MEDS: D5% in Water 1,000 ML IVC SCH (22:07)
[2021-09-14] MEDS: Divalproex Sodium 125 MG Sprinkle Capsule (DR) GTUBE SCH (22:17)
[2021-09-15] MEDS: FentaNYL (PF) 1,000 MCG/100 ML IV.SOLN IVC SCH ×2 (02:40→14:02)
[2021-09-15 02:59] LABS: VBG Ionized Calcium 1.36 mmol/L (1.15-1.35)
[2021-09-15 03:14] LABS: Basophils % 0.3 %; Eosinophils % 0.1 %; Mean Corpuscular Volume 102.6 fL (83.0-100.0)
[2021-09-15 03:16] LABS: Basophils # 0.1 K/mcL (0.0-0.2); Hematocrit 39.8 % (37.5-50.1); Hemoglobin 12.2 g/dL (12.9-16.9); Immature Granulocytes % 2.9 % (0-4); Immature Platelets 9.2 % (1.1-6.1); Lymphocytes # 1.1 K/mcL (0.6-4.6); Mean Corpuscular HGB Conc 30.7 g/dL (31.6-35.5); Mean Corpuscular Hemoglobin 31.4 pg (28.0-33.3); Mean Platelet Volume 12.3 fL (9.4-12.4); Monocytes # 0.5 K/mcL (0.0-1.3); Monocytes % 3.4 %; Neutrophils # 13.1 K/mcL (1.6-8.9); Red Blood Count 3.88 M/mcL (4.19-5.50); Red Cell Distribution Width 16.3 % (11.5-14.5); Segmented Neutrophils % 86.3 %; White Blood Count 15.2 K/mcL (4.3-11.1)
[2021-09-15 03:32] LABS: Platelet Count 94 K/mcL (140-400)
[2021-09-15] MEDS: Ipratropium/Albuterol Neb 3 ML IH PRN ×5 (03:47→20:21)
[2021-09-15] MEDS: Acetylcysteine 10% 2 ML INHSOL IH SCH ×5 (03:47→20:21)
[2021-09-15 03:49] LABS: Potassium 4.3 mEq/L (3.5-5.1)
[2021-09-15 03:50] LABS: Albumin/Globulin Ratio 2.5 (1.1-2.2); Bilirubin,Direct 0.3 mg/dL (0.0-0.2); Bilirubin,Indirect 0.5 mg/dL (0.0-1.0); Bilirubin,Total 0.8 mg/dL (0.3-1.0); Calcium 9.5 mg/dL (8.6-10.3); Globulin 1.6 g/dL (2.4-3.5); Magnesium 2.2 mg/dL (1.6-2.6); Phosphorous 3.5 mg/dL (2.7-4.5); Total Protein 5.6 g/dL (6.4-8.9)
[2021-09-15 04:33] LABS: ABG Base Excess 3 mEq/L (-2 to 3); ABG HCO3 28 mEq/L (21-27); ABG Oxygen Saturation 95 % (95-98); ABG PCO2 47 mmHg (35-45); ABG PH 7.39 pH Units (7.32-7.45); ABG PO2 78 mmHg (85-104); ABG TCO2 30 mEq/L (20-26); Blood Gas Modality ASSIST CONTROL; Blood Gas VT 450 cc
[2021-09-15] MEDS: *HR* Heparin 5,000 UNIT/ML VIAL SQ SCH ×3 (05:33→22:10)
[2021-09-15] MEDS: Norepinephrine 32 MG/250 ML IV.SOLN IVC SCH ×2 (06:55→12:29)
[2021-09-15] MEDS: Phenylephrine 100 MG in 0.9 % Sodium Chloride 250 ML IVC SCH ×2 (06:55→14:52)
[2021-09-15] MEDS: Dexmedetomidine HCl 400 MCG/100 ML MLS IVC SCH ×2 (07:05→20:59)
[2021-09-15] MEDS: Amiodarone Premix 360 MG/200 ML BAG IVC SCH (07:06)
[2021-09-15] MEDS: D5% in Water 1,000 ML IVC SCH ×3 (07:07→20:58)
[2021-09-15] MEDS: Chlorhexidine Rinse 15 ML MOUTHWASH MM SCH ×2 (07:08→20:04)
[2021-09-15] MEDS: Docusate Oral Soln 100 MG/10 ML UDC GTUBE SCH ×2 (07:08→20:03)
[2021-09-15] MEDS: Pantoprazole 40 MG VIAL IVP SCH (07:08)
[2021-09-15] MEDS: Lacri-Lube 3.5 GM TUBE BOTH EYES SCH ×2 (07:09→20:04)
[2021-09-15] MEDS: Budesonide/Formoterol 160/4.5 1 PUFF INH IH SCH ×2 (07:40→20:20)
[2021-09-15 09:32] LABS: Calcium 9.4 mg/dL (8.6-10.3); Potassium 4.3 mEq/L (3.5-5.1)
[2021-09-15 13:39] LABS: BUN/Creatinine Ratio 52 (6-26); Blood Urea Nitrogen 67 mg/dL (8-23); Calcium 8.5 mg/dL (8.6-10.3); Carbon Dioxide 29 mEq/L (23-29); Chloride 112 mEq/L (98-107); Glucose 536 mg/dL (70-105); Osmolality,Calculated 344 (280-300); Potassium 3.7 mEq/L (3.5-5.1); Sodium 145 mEq/L (136-145); eGFR For African Americans > 60 (> 60); eGFR For Non-African Americans 56 (> 60)
[2021-09-15 13:43] LABS: BUN/Creatinine Ratio 51 (6-26); Blood Urea Nitrogen 69 mg/dL (8-23); Calcium 8.9 mg/dL (8.6-10.3); Carbon Dioxide 29 mEq/L (23-29); Chloride 114 mEq/L (98-107); Glucose 478 mg/dL (70-105); Osmolality,Calculated 349 (280-300); Potassium 3.8 mEq/L (3.5-5.1); Sodium 149 mEq/L (136-145); eGFR For African Americans > 60 (> 60); eGFR For Non-African Americans 54 (> 60)
[2021-09-15] MEDS: cefTRIAXone 2,000 MG in 0.9 % Sodium Chloride 20 ML IVP SCH (15:06)
[2021-09-15 15:15] LABS: BUN/Creatinine Ratio 54 (6-26); Blood Urea Nitrogen 72 mg/dL (8-23); Calcium 9.4 mg/dL (8.6-10.3); Carbon Dioxide 34 mEq/L (23-29); Chloride 123 mEq/L (98-107); Glucose 206 mg/dL (70-105); Osmolality,Calculated 355 (280-300); Potassium 4.2 mEq/L (3.5-5.1); Sodium 159 mEq/L (136-145); eGFR For African Americans > 60 (> 60); eGFR For Non-African Americans 54 (> 60)
[2021-09-15] MEDS: hydroCHLOROthiazide 25 MG TABLET GTUBE SCH (15:44)
[2021-09-15 18:09] LABS: BUN/Creatinine Ratio 54 (6-26); Blood Urea Nitrogen 74 mg/dL (8-23); Calcium 9.5 mg/dL (8.6-10.3); Carbon Dioxide 34 mEq/L (23-29); Chloride 120 mEq/L (98-107); Glucose 196 mg/dL (70-105); Osmolality,Calculated 351 (280-300); Potassium 4.2 mEq/L (3.5-5.1); Sodium 157 mEq/L (136-145); eGFR For African Americans > 60 (> 60); eGFR For Non-African Americans 52 (> 60)
[2021-09-15] MEDS: *HR* Metoprolol 5 MG/5 ML VIAL IVP PRN (18:17)
[2021-09-15] MEDS: Divalproex Sodium 125 MG Sprinkle Capsule (DR) GTUBE SCH (20:04)
[2021-09-15 22:52] LABS: BUN/Creatinine Ratio 54 (6-26); Blood Urea Nitrogen 75 mg/dL (8-23); Calcium 9.4 mg/dL (8.6-10.3); Carbon Dioxide 29 mEq/L (23-29); Chloride 123 mEq/L (98-107); Glucose 211 mg/dL (70-105); Osmolality,Calculated 355 (280-300); Potassium 5.4 mEq/L (3.5-5.1); Sodium 158 mEq/L (136-145); eGFR For African Americans > 60 (> 60); eGFR For Non-African Americans 51 (> 60)
[2021-09-16] MEDS: Acetylcysteine 10% 2 ML INHSOL IH SCH ×7 (00:04→23:50)
[2021-09-16] MEDS: Ipratropium/Albuterol Neb 3 ML IH PRN ×7 (00:05→23:50)
[2021-09-16] MEDS: FentaNYL (PF) 1,000 MCG/100 ML IV.SOLN IVC SCH ×2 (03:36→18:04)
[2021-09-16] MEDS: D5% in Water 1,000 ML IVC SCH ×3 (03:37→15:47)
[2021-09-16 03:43] LABS: Basophils % 0.2 %; Eosinophils # 0.1 K/mcL (0.0-0.6); Eosinophils % 0.6 %; Hemoglobin 11.6 g/dL (12.9-16.9); Immature Granulocytes % 1.4 % (0-4); Immature Platelets 15.8 % (1.1-6.1); Lymphocytes # 1.1 K/mcL (0.6-4.6); Lymphocytes % 10.2 %; Mean Corpuscular HGB Conc 29.7 g/dL (31.6-35.5); Mean Corpuscular Hemoglobin 31.5 pg (28.0-33.3); Mean Platelet Volume 12.8 fL (9.4-12.4); Monocytes # 0.4 K/mcL (0.0-1.3); Monocytes % 3.4 %; Neutrophils # 9.2 K/mcL (1.6-8.9); Red Blood Count 3.68 M/mcL (4.19-5.50); Red Cell Distribution Width 16.2 % (11.5-14.5); Segmented Neutrophils % 84.2 %; White Blood Count 10.9 K/mcL (4.3-11.1)
[2021-09-16 03:44] LABS: Platelet Count 61 K/mcL (140-400)
[2021-09-16 04:00] LABS: Alanine Aminotransferase 17 Units/L (7-52); Albumin 2.6 g/dL (3.5-5.7); Albumin/Globulin Ratio 0.9 (1.1-2.2); Alkaline Phosphatase 67 Units/L (34-104); Aspartate Amino Transferase 17 Units/L (13-39); BUN/Creatinine Ratio 54 (6-26); Bilirubin,Direct 0.3 mg/dL (0.0-0.2); Bilirubin,Indirect 0.5 mg/dL (0.0-1.0); Bilirubin,Total 0.8 mg/dL (0.3-1.0); Blood Urea Nitrogen 72 mg/dL (8-23); Calcium 9.5 mg/dL (8.6-10.3); Carbon Dioxide 32 mEq/L (23-29); Chloride 119 mEq/L (98-107); Glucose 173 mg/dL (70-105); Magnesium 2.3 mg/dL (1.6-2.6); Osmolality,Calculated 349 (280-300); Phosphorous 3.6 mg/dL (2.7-4.5); Potassium 4.2 mEq/L (3.5-5.1); Sodium 157 mEq/L (136-145); Total Protein 5.6 g/dL (6.4-8.9); eGFR For African Americans > 60 (> 60); eGFR For Non-African Americans 54 (> 60)
[2021-09-16 04:01] LABS: VBG Ionized Calcium 1.34 mmol/L (1.15-1.35)
[2021-09-16 04:24] LABS: ABG Base Excess 8 mEq/L (-2 to 3); ABG HCO3 38 mEq/L (21-27); ABG Oxygen Saturation 90 % (95-98); ABG PCO2 76 mmHg (35-45); ABG PO2 68 mmHg (85-104); ABG TCO2 40 mEq/L (20-26); Blood Gas Modality ASSIST CONTROL; Blood Gas VT 450 cc
[2021-09-16] MEDS: *HR* Heparin 5,000 UNIT/ML VIAL SQ SCH ×3 (05:19→21:00)
[2021-09-16] MEDS: Docusate Oral Soln 100 MG/10 ML UDC GTUBE SCH ×2 (07:49→20:59)
[2021-09-16] MEDS: Chlorhexidine Rinse 15 ML MOUTHWASH MM SCH ×2 (07:49→21:00)
[2021-09-16] MEDS: hydroCHLOROthiazide 25 MG TABLET GTUBE SCH (07:50)
[2021-09-16] MEDS: Pantoprazole 40 MG VIAL IVP SCH (07:50)
[2021-09-16] MEDS: Lacri-Lube 3.5 GM TUBE BOTH EYES SCH ×2 (07:50→21:08)
[2021-09-16] MEDS: Budesonide/Formoterol 160/4.5 1 PUFF INH IH SCH ×2 (08:18→20:05)
[2021-09-16] MEDS: Dexmedetomidine HCl 400 MCG/100 ML MLS IVC SCH ×2 (10:05→23:04)
[2021-09-16 11:07] LABS: BUN/Creatinine Ratio 54 (6-26); Blood Urea Nitrogen 75 mg/dL (8-23); Calcium 9.3 mg/dL (8.6-10.3); Carbon Dioxide 34 mEq/L (23-29); Chloride 117 mEq/L (98-107); Glucose 255 mg/dL (70-105); Osmolality,Calculated 349 (280-300); Potassium 4.3 mEq/L (3.5-5.1); Sodium 154 mEq/L (136-145); eGFR For African Americans > 60 (> 60); eGFR For Non-African Americans 51 (> 60)
[2021-09-16 11:40] LABS: ABG Base Excess 6 mEq/L (-2 to 3); ABG HCO3 34 mEq/L (21-27); ABG Oxygen Saturation 91 % (95-98); ABG PCO2 67 mmHg (35-45); ABG PH 7.31 pH Units (7.32-7.45); ABG PO2 69 mmHg (85-104); ABG TCO2 36 mEq/L (20-26); Blood Gas Modality AF; Blood Gas VT 450 cc
[2021-09-16] MEDS: Norepinephrine 32 MG/250 ML IV.SOLN IVC SCH (14:11)
[2021-09-16 14:12] LABS: BUN/Creatinine Ratio 55 (6-26); Blood Urea Nitrogen 73 mg/dL (8-23); Calcium 9.3 mg/dL (8.6-10.3); Carbon Dioxide 33 mEq/L (23-29); Chloride 117 mEq/L (98-107); Glucose 208 mg/dL (70-105); Osmolality,Calculated 342 (280-300); Potassium 4.4 mEq/L (3.5-5.1); Sodium 152 mEq/L (136-145); eGFR For African Americans > 60 (> 60); eGFR For Non-African Americans 54 (> 60)
[2021-09-16] MEDS: cefTRIAXone 2,000 MG in 0.9 % Sodium Chloride 20 ML IVP SCH (15:45)
[2021-09-16 18:03] LABS: BUN/Creatinine Ratio 55 (6-26); Blood Urea Nitrogen 71 mg/dL (8-23); Calcium 9.2 mg/dL (8.6-10.3); Carbon Dioxide 35 mEq/L (23-29); Chloride 116 mEq/L (98-107); Glucose 176 mg/dL (70-105); Osmolality,Calculated 341 (280-300); Potassium 4.4 mEq/L (3.5-5.1); Sodium 153 mEq/L (136-145); eGFR For African Americans > 60 (> 60); eGFR For Non-African Americans 57 (> 60)
[2021-09-16] MEDS: Phenylephrine 100 MG in 0.9 % Sodium Chloride 250 ML IVC SCH (18:06)
[2021-09-16] MEDS: Divalproex Sodium 125 MG Sprinkle Capsule (DR) GTUBE SCH (21:00)
[2021-09-16] MEDS: Acetaminophen 325 MG TABLET PO PRN (21:00)
[2021-09-16 21:57] LABS: BUN/Creatinine Ratio 56 (6-26); Blood Urea Nitrogen 70 mg/dL (8-23); Calcium 9.2 mg/dL (8.6-10.3); Carbon Dioxide 35 mEq/L (23-29); Chloride 117 mEq/L (98-107); Glucose 171 mg/dL (70-105); Osmolality,Calculated 343 (280-300); Potassium 4.5 mEq/L (3.5-5.1); Sodium 154 mEq/L (136-145); eGFR For African Americans > 60 (> 60); eGFR For Non-African Americans 58 (> 60)
[2021-09-17 01:09] LABS: VBG Ionized Calcium 1.33 mmol/L (1.15-1.35)
[2021-09-17 01:26] LABS: Alanine Aminotransferase 19 Units/L (7-52); Albumin 2.5 g/dL (3.5-5.7); Albumin/Globulin Ratio 0.9 (1.1-2.2); Alkaline Phosphatase 62 Units/L (34-104); Aspartate Amino Transferase 25 Units/L (13-39); BUN/Creatinine Ratio 54 (6-26); Bilirubin,Direct 0.1 mg/dL (0.0-0.2); Bilirubin,Indirect 0.5 mg/dL (0.0-1.0); Bilirubin,Total 0.6 mg/dL (0.3-1.0); Blood Urea Nitrogen 72 mg/dL (8-23); Calcium 9.1 mg/dL (8.6-10.3); Carbon Dioxide 34 mEq/L (23-29); Chloride 115 mEq/L (98-107); Globulin 2.9 g/dL (2.4-3.5); Glucose 167 mg/dL (70-105); Magnesium 2.3 mg/dL (1.6-2.6); Osmolality,Calculated 339 (280-300); Phosphorous 3.7 mg/dL (2.7-4.5); Potassium 4.6 mEq/L (3.5-5.1); Sodium 152 mEq/L (136-145); Total Protein 5.4 g/dL (6.4-8.9); eGFR For African Americans > 60 (> 60); eGFR For Non-African Americans 54 (> 60)
[2021-09-17] MEDS: D5% in Water 1,000 ML IVC SCH ×5 (01:51→20:31)
[2021-09-17] MEDS: Ipratropium/Albuterol Neb 3 ML IH PRN ×5 (04:29→20:40)
[2021-09-17] MEDS: Acetylcysteine 10% 2 ML INHSOL IH SCH ×5 (04:29→20:40)
[2021-09-17 04:41] LABS: ABG Base Excess 7 mEq/L (-2 to 3); ABG HCO3 35 mEq/L (21-27); ABG Oxygen Saturation 91 % (95-98); ABG PCO2 68 mmHg (35-45); ABG PH 7.32 pH Units (7.32-7.45); ABG PO2 69 mmHg (85-104); ABG TCO2 37 mEq/L (20-26); Blood Gas VT 450 cc
[2021-09-17 05:11] LABS: Mean Corpuscular Hemoglobin 31.4 pg (28.0-33.3)
[2021-09-17 05:18] LABS: Basophils % 0.2 %; Eosinophils # 0.1 K/mcL (0.0-0.6); Eosinophils % 0.7 %; Hemoglobin 10.5 g/dL (12.9-16.9); Immature Granulocytes % 0.7 % (0-4); Lymphocytes # 1.2 K/mcL (0.6-4.6); Lymphocytes % 12.4 %; Mean Corpuscular HGB Conc 30.9 g/dL (31.6-35.5); Mean Corpuscular Volume 101.8 fL (83.0-100.0); Monocytes # 0.4 K/mcL (0.0-1.3); Monocytes % 4.4 %; Red Blood Count 3.34 M/mcL (4.19-5.50); Red Cell Distribution Width 15.7 % (11.5-14.5); Segmented Neutrophils % 81.6 %; White Blood Count 9.6 K/mcL (4.3-11.1)
[2021-09-17 05:20] LABS: BUN/Creatinine Ratio 55 (6-26); Blood Urea Nitrogen 70 mg/dL (8-23); Carbon Dioxide 33 mEq/L (23-29); Chloride 116 mEq/L (98-107); Glucose 157 mg/dL (70-105); Neutrophils # 7.8 K/mcL (1.6-8.9); Osmolality,Calculated 340 (280-300); Potassium 4.4 mEq/L (3.5-5.1); Sodium 153 mEq/L (136-145); eGFR For African Americans > 60 (> 60); eGFR For Non-African Americans 57 (> 60)
[2021-09-17] MEDS: *HR* Heparin 5,000 UNIT/ML VIAL SQ SCH (05:44)
[2021-09-17] MEDS: Budesonide/Formoterol 160/4.5 1 PUFF INH IH SCH ×2 (07:35→20:40)
[2021-09-17] MEDS: Docusate Oral Soln 100 MG/10 ML UDC GTUBE SCH ×2 (07:51→20:31)
[2021-09-17] MEDS: Chlorhexidine Rinse 15 ML MOUTHWASH MM SCH ×2 (07:51→20:30)
[2021-09-17] MEDS: Pantoprazole 40 MG VIAL IVP SCH (07:51)
[2021-09-17] MEDS: hydroCHLOROthiazide 25 MG TABLET GTUBE SCH (07:52)
[2021-09-17] MEDS: Lacri-Lube 3.5 GM TUBE BOTH EYES SCH ×2 (07:52→20:31)
[2021-09-17] MEDS: FentaNYL (PF) 1,000 MCG/100 ML IV.SOLN IVC SCH (07:57)
[2021-09-17] MEDS: Acetaminophen 325 MG TABLET PO PRN (08:14)
[2021-09-17 09:23] LABS: BUN/Creatinine Ratio 54 (6-26); Blood Urea Nitrogen 70 mg/dL (8-23); Calcium 8.8 mg/dL (8.6-10.3); Carbon Dioxide 33 mEq/L (23-29); Chloride 116 mEq/L (98-107); Glucose 152 mg/dL (70-105); Osmolality,Calculated 339 (280-300); Potassium 4.7 mEq/L (3.5-5.1); Sodium 153 mEq/L (136-145); eGFR For African Americans > 60 (> 60); eGFR For Non-African Americans 56 (> 60)
[2021-09-17 09:45] LABS: Bacteria,Urine Few per hpf (None-Few); Bilirubin,Urine Negative (Negative); Blood,Urine Large (Negative); Clarity,Urine Clear (Clear); Color,Urine Light-Yellow (Yellow); Glucose,Urine (UA) Normal (Normal); Ketones,Urine Negative (Negative); Leukocyte Esterase,Urine Negative (Negative); Mucus,Urine Few per lpf (None-Few); Nitrite,Urine Negative (Negative); Protein,Urine Trace mg/dL (Neg-Trace); Specific Gravity,Urine 1.014 (1.010-1.025); Urobilinogen,Urine Normal (Normal); WBC,Urine 0-3 per hpf (0-3)
[2021-09-17 10:50] LABS: BUN/Creatinine Ratio 58 (6-26); Blood Urea Nitrogen 70 mg/dL (8-23); Carbon Dioxide 34 mEq/L (23-29); Chloride 115 mEq/L (98-107); Glucose 164 mg/dL (70-105); Osmolality,Calculated 340 (280-300); Potassium 4.5 mEq/L (3.5-5.1); Sodium 153 mEq/L (136-145); eGFR For African Americans > 60 (> 60); eGFR For Non-African Americans > 60 (> 60)
[2021-09-17] MEDS: Vancomycin 1,250 MG/262.5 ML IV.SOLN IVPB SCH ×2 (11:42→23:46)
[2021-09-17] MEDS: Dexmedetomidine HCl 400 MCG/100 ML MLS IVC SCH ×2 (11:43→23:45)
[2021-09-17] MEDS ORDERED: Vancomycin 1,500 MG/265 ML IV.SOLN IVPB SCH (12:00)
[2021-09-17] MEDS: Norepinephrine 32 MG/250 ML IV.SOLN IVC SCH (12:10)
[2021-09-17 16:23] LABS: BUN/Creatinine Ratio 59 (6-26); Blood Urea Nitrogen 69 mg/dL (8-23); Calcium 8.9 mg/dL (8.6-10.3); Carbon Dioxide 32 mEq/L (23-29); Chloride 115 mEq/L (98-107); Glucose 157 mg/dL (70-105); Osmolality,Calculated 335 (280-300); Potassium 4.9 mEq/L (3.5-5.1); Sodium 151 mEq/L (136-145); eGFR For African Americans > 60 (> 60); eGFR For Non-African Americans > 60 (> 60)
[2021-09-17] MEDS: Phenylephrine 100 MG in 0.9 % Sodium Chloride 250 ML IVC SCH (16:33)
[2021-09-17 16:46] LABS: BUN/Creatinine Ratio 59 (6-26); Blood Urea Nitrogen 70 mg/dL (8-23); Calcium 8.8 mg/dL (8.6-10.3); Carbon Dioxide 30 mEq/L (23-29); Chloride 116 mEq/L (98-107); Glucose 168 mg/dL (70-105); Osmolality,Calculated 336 (280-300); Potassium 4.5 mEq/L (3.5-5.1); Sodium 151 mEq/L (136-145); eGFR For African Americans > 60 (> 60); eGFR For Non-African Americans > 60 (> 60)
[2021-09-17] MEDS: Cefepime HCl 2,000 MG in 0.9 % Sodium Chloride 10 ML IVP SCH (18:08)
[2021-09-17] MEDS: Divalproex Sodium 125 MG Sprinkle Capsule (DR) GTUBE SCH (20:31)
[2021-09-17 20:49] LABS: BUN/Creatinine Ratio 61 (6-26); Blood Urea Nitrogen 72 mg/dL (8-23); Calcium 8.6 mg/dL (8.6-10.3); Carbon Dioxide 31 mEq/L (23-29); Chloride 116 mEq/L (98-107); Glucose 157 mg/dL (70-105); Lactate Dehydrogenase 237 Units/L (140-271); Osmolality,Calculated 336 (280-300); Potassium 4.4 mEq/L (3.5-5.1); Sodium 151 mEq/L (136-145); eGFR For African Americans > 60 (> 60); eGFR For Non-African Americans > 60 (> 60)
[2021-09-17 21:57] LABS: Hepatitis B Surface Antigen Nonreactive (Nonreactive)
[2021-09-17 22:27] LABS: Hepatitis C Virus Antibody Nonreactive (Nonreactive)
[2021-09-18] MEDS: Ipratropium/Albuterol Neb 3 ML IH PRN ×7 (00:14→23:53)
[2021-09-18] MEDS: Acetylcysteine 10% 2 ML INHSOL IH SCH ×7 (00:14→23:53)
[2021-09-18 01:48] LABS: Blood Urea Nitrogen 73 mg/dL (8-23); Calcium 8.6 mg/dL (8.6-10.3); Carbon Dioxide 34 mEq/L (23-29); Chloride 114 mEq/L (98-107); Glucose 175 mg/dL (70-105); Osmolality,Calculated 338 (280-300); Potassium 4.3 mEq/L (3.5-5.1); Sodium 151 mEq/L (136-145)
[2021-09-18 03:41] LABS: Basophils % 0.1 %; Eosinophils % 0.2 %; Hematocrit 35.6 % (37.5-50.1); Hemoglobin 10.7 g/dL (12.9-16.9); Immature Granulocytes % 0.9 % (0-4); Immature Platelets 30.8 % (1.1-6.1); Lymphocytes # 0.8 K/mcL (0.6-4.6); Lymphocytes % 8.2 %; Mean Corpuscular HGB Conc 30.1 g/dL (31.6-35.5); Mean Corpuscular Hemoglobin 32.1 pg (28.0-33.3); Mean Corpuscular Volume 106.9 fL (83.0-100.0); Mean Platelet Volume 12.6 fL (9.4-12.4); Monocytes # 0.5 K/mcL (0.0-1.3); Monocytes % 4.8 %; Neutrophils # 8.7 K/mcL (1.6-8.9); Red Blood Count 3.33 M/mcL (4.19-5.50); Red Cell Distribution Width 15.1 % (11.5-14.5); Segmented Neutrophils % 85.8 %; White Blood Count 10.1 K/mcL (4.3-11.1)
[2021-09-18 03:45] LABS: VBG Ionized Calcium 1.29 mmol/L (1.15-1.35)
[2021-09-18 03:58] LABS: Alanine Aminotransferase 49 Units/L (7-52); Albumin 2.5 g/dL (3.5-5.7); Alkaline Phosphatase 60 Units/L (34-104); Aspartate Amino Transferase 104 Units/L (13-39); BUN/Creatinine Ratio 53 (6-26); Bilirubin,Total 0.6 mg/dL (0.3-1.0); Blood Urea Nitrogen 75 mg/dL (8-23); Calcium 8.7 mg/dL (8.6-10.3); Carbon Dioxide 35 mEq/L (23-29); Chloride 114 mEq/L (98-107); Globulin 2.6 g/dL (2.4-3.5); Glucose 171 mg/dL (70-105); Magnesium 2.5 mg/dL (1.6-2.6); Osmolality,Calculated 340 (280-300); Phosphorous 5.4 mg/dL (2.7-4.5); Potassium 4.3 mEq/L (3.5-5.1); Sodium 152 mEq/L (136-145); Total Protein 5.1 g/dL (6.4-8.9); eGFR For African Americans > 60 (> 60); eGFR For Non-African Americans 51 (> 60)
[2021-09-18 04:19] LABS: ABG Base Excess 5 mEq/L (-2 to 3); ABG HCO3 35 mEq/L (21-27); ABG Oxygen Saturation 92 % (95-98); ABG PCO2 81 mmHg (35-45); ABG PH 7.24 pH Units (7.32-7.45); ABG PO2 78 mmHg (85-104); ABG TCO2 38 mEq/L (20-26); Blood Gas Modality ASSIST CONTROL; Blood Gas VT 450 cc
[2021-09-18] MEDS: Cefepime HCl 2,000 MG in 0.9 % Sodium Chloride 10 ML IVP SCH ×2 (05:09→17:02)
[2021-09-18] MEDS: Dexmedetomidine HCl 400 MCG/100 ML MLS IVC SCH (05:10)
[2021-09-18] MEDS: D5% in Water 1,000 ML IVC SCH ×2 (05:38→15:38)
[2021-09-18 06:21] LABS: BUN/Creatinine Ratio 53 (6-26); eGFR For African Americans > 60 (> 60); eGFR For Non-African Americans 52 (> 60)
[2021-09-18] MEDS: Budesonide/Formoterol 160/4.5 1 PUFF INH IH SCH ×2 (07:33→20:08)
[2021-09-18] MEDS: Pantoprazole 40 MG VIAL IVP SCH (08:14)
[2021-09-18] MEDS: Docusate Oral Soln 100 MG/10 ML UDC GTUBE SCH ×2 (08:14→20:26)
[2021-09-18] MEDS: Chlorhexidine Rinse 15 ML MOUTHWASH MM SCH ×2 (08:14→20:26)
[2021-09-18] MEDS: Lacri-Lube 3.5 GM TUBE BOTH EYES SCH ×2 (08:19→20:28)
[2021-09-18] MEDS: hydroCHLOROthiazide 25 MG TABLET GTUBE SCH (09:10)
[2021-09-18] MEDS: aMILoride 5 MG TABLET PO SCH (09:10)
[2021-09-18] MEDS ORDERED: Albumin Human 5% 12.5 GM/250 ML IV.SOLN IVPB ONE (09:10)
[2021-09-18] MEDS ORDERED: Gadolinium Contrast Agent (WT Based) IV PRN (11:47)
[2021-09-18] MEDS: Vancomycin 1,250 MG/262.5 ML IV.SOLN IVPB SCH ×2 (12:46→23:26)
[2021-09-18] MEDS: Albumin 25% 25gram/100mL 25 GM/100 ML IV.SOLN IVPB SCH ×2 (15:26→23:26)
[2021-09-18] MEDS: Norepinephrine 32 MG/250 ML IV.SOLN IVC SCH (16:18)
[2021-09-18] MEDS: Phenylephrine 100 MG in 0.9 % Sodium Chloride 250 ML IVC SCH (16:19)
[2021-09-18] MEDS: *HR* Metoprolol 5 MG/5 ML VIAL IVP PRN (17:07)
[2021-09-18] MEDS: Divalproex Sodium 125 MG Sprinkle Capsule (DR) GTUBE SCH (20:27)
[2021-09-18 22:46] LABS: Calcium 8.8 mg/dL (8.6-10.3); Potassium 4.4 mEq/L (3.5-5.1)
[2021-09-18] MEDS: Artificial Tears SOLN 15 ML BOTTLE BOTH EYES PRN (23:28)
[2021-09-19] MEDS: Artificial Tears SOLN 15 ML BOTTLE BOTH EYES PRN (03:22)
[2021-09-19] MEDS: Ipratropium/Albuterol Neb 3 ML IH PRN ×6 (03:36→23:47)
[2021-09-19] MEDS: Acetylcysteine 10% 2 ML INHSOL IH SCH ×6 (03:36→23:47)
[2021-09-19] MEDS: D5% in Water 1,000 ML IVC SCH (03:48)
[2021-09-19 04:36] LABS: Basophils % 0.2 %; Hemoglobin 9.5 g/dL (12.9-16.9); Mean Corpuscular HGB Conc 30.4 g/dL (31.6-35.5); Mean Corpuscular Hemoglobin 31.9 pg (28.0-33.3); Red Blood Count 2.98 M/mcL (4.19-5.50); Red Cell Distribution Width 14.7 % (11.5-14.5)
[2021-09-19 04:38] LABS: Eosinophils % 0.3 %; Hematocrit 31.2 % (37.5-50.1); Immature Granulocytes % 0.9 % (0-4); Lymphocytes # 0.7 K/mcL (0.6-4.6); Mean Corpuscular Volume 104.7 fL (83.0-100.0); Monocytes # 0.7 K/mcL (0.0-1.3); Monocytes % 7.1 %; Segmented Neutrophils % 84.5 %
[2021-09-19 04:39] LABS: VBG Ionized Calcium 1.29 mmol/L (1.15-1.35)
[2021-09-19 04:44] LABS: Neutrophils # 8.5 K/mcL (1.6-8.9)
[2021-09-19 04:54] LABS: ABG Base Excess 5 mEq/L (-2 to 3); ABG HCO3 33 mEq/L (21-27); ABG Oxygen Saturation 86 % (95-98); ABG PCO2 69 mmHg (35-45); ABG PH 7.28 pH Units (7.32-7.45); ABG PO2 60 mmHg (85-104); ABG TCO2 35 mEq/L (20-26); Blood Gas Modality AF; Blood Gas VT 450 cc
[2021-09-19 04:57] LABS: Alanine Aminotransferase 68 Units/L (7-52); Albumin/Globulin Ratio 1.2 (1.1-2.2); Alkaline Phosphatase 50 Units/L (34-104); Aspartate Amino Transferase 127 Units/L (13-39); BUN/Creatinine Ratio 65 (6-26); Bilirubin,Total 0.6 mg/dL (0.3-1.0); Blood Urea Nitrogen 92 mg/dL (8-23); Carbon Dioxide 32 mEq/L (23-29); Chloride 112 mEq/L (98-107); Globulin 2.6 g/dL (2.4-3.5); Glucose 131 mg/dL (70-105); Magnesium 2.6 mg/dL (1.6-2.6); Osmolality,Calculated 336 (280-300); Phosphorous 4.6 mg/dL (2.7-4.5); Potassium 4.2 mEq/L (3.5-5.1); Sodium 148 mEq/L (136-145); Total Protein 5.6 g/dL (6.4-8.9); eGFR For African Americans > 60 (> 60); eGFR For Non-African Americans 51 (> 60)
[2021-09-19] MEDS: Cefepime HCl 2,000 MG in 0.9 % Sodium Chloride 10 ML IVP SCH ×2 (05:59→17:24)
[2021-09-19] MEDS: Budesonide/Formoterol 160/4.5 1 PUFF INH IH SCH ×2 (08:08→19:54)
[2021-09-19] MEDS: FentaNYL (PF) 1,000 MCG/100 ML IV.SOLN IVC SCH (08:17)
[2021-09-19] MEDS: Chlorhexidine Rinse 15 ML MOUTHWASH MM SCH ×2 (08:20→20:22)
[2021-09-19] MEDS: Albumin 25% 25gram/100mL 25 GM/100 ML IV.SOLN IVPB SCH ×2 (08:20→15:48)
[2021-09-19] MEDS: Docusate Oral Soln 100 MG/10 ML UDC GTUBE SCH ×2 (08:20→20:22)
[2021-09-19] MEDS: aMILoride 5 MG TABLET PO SCH (08:21)
[2021-09-19] MEDS: Pantoprazole 40 MG VIAL IVP SCH (08:21)
[2021-09-19] MEDS: hydroCHLOROthiazide 25 MG TABLET GTUBE SCH (08:21)
[2021-09-19] MEDS: Lacri-Lube 3.5 GM TUBE BOTH EYES SCH ×2 (08:22→20:22)
[2021-09-19 09:02] LABS: Calcium 8.9 mg/dL (8.6-10.3); Potassium 4.7 mEq/L (3.5-5.1)
[2021-09-19] MEDS: Vancomycin 1,250 MG/262.5 ML IV.SOLN IVPB SCH (11:32)
[2021-09-19] MEDS ORDERED: D5% in Water 1,000 ML IVC SCH (15:30)
[2021-09-19] MEDS ORDERED: Dextrose 4 GM Chewable Tablets PO PRN ×2 (15:59)
[2021-09-19] MEDS ORDERED: D5% in Water 1,000 ML IVC PRN (15:59)
[2021-09-19] MEDS ORDERED: *HR* Dextrose 50 % in Water (Syg) 50 ML SYRINGE IVP PRN (15:59)
[2021-09-19] MEDS: Phenylephrine 100 MG in 0.9 % Sodium Chloride 250 ML IVC SCH (16:06)
[2021-09-19] MEDS: Norepinephrine 32 MG/250 ML IV.SOLN IVC SCH (16:06)
[2021-09-19] MEDS: Insulin LISPRO 300 UNITS/3 ML VIAL SUBQ SCH ×2 (16:08→20:17)
[2021-09-19 16:52] LABS: Potassium 4.7 mEq/L (3.5-5.1)
[2021-09-19] MEDS: Divalproex Sodium 125 MG Sprinkle Capsule (DR) GTUBE SCH (20:22)
[2021-09-20] MEDS: Albumin 25% 25gram/100mL 25 GM/100 ML IV.SOLN IVPB SCH ×4 (00:16→23:16)
[2021-09-20] MEDS: Vancomycin 1,250 MG/262.5 ML IV.SOLN IVPB SCH ×2 (00:17→16:12)
[2021-09-20] MEDS: Insulin LISPRO 300 UNITS/3 ML VIAL SUBQ SCH ×7 (00:17→23:17)
[2021-09-20 01:14] LABS: Calcium 9.1 mg/dL (8.6-10.3); Potassium 5.3 mEq/L (3.5-5.1)
[2021-09-20] MEDS: Dexmedetomidine HCl 400 MCG/100 ML MLS IVC SCH ×3 (01:57→20:25)
[2021-09-20] MEDS: Ipratropium/Albuterol Neb 3 ML IH PRN ×5 (03:47→19:46)
[2021-09-20] MEDS: Acetylcysteine 10% 2 ML INHSOL IH SCH ×5 (03:47→19:46)
[2021-09-20] MEDS: FentaNYL (PF) 1,000 MCG/100 ML IV.SOLN IVC SCH ×2 (04:04→20:05)
[2021-09-20] MEDS: Cefepime HCl 2,000 MG in 0.9 % Sodium Chloride 10 ML IVP SCH ×2 (06:07→18:12)
[2021-09-20 06:26] LABS: VBG Ionized Calcium 1.22 mmol/L (1.15-1.35)
[2021-09-20 06:44] LABS: Albumin 3.3 g/dL (3.5-5.7); Albumin/Globulin Ratio 1.3 (1.1-2.2); Bilirubin,Total 0.6 mg/dL (0.3-1.0); Calcium 9.2 mg/dL (8.6-10.3); Calcium 9.3 mg/dL (8.6-10.3); Globulin 2.5 g/dL (2.4-3.5); Magnesium 2.6 mg/dL (1.6-2.6); Phosphorous 6.1 mg/dL (2.7-4.5); Total Protein 5.8 g/dL (6.4-8.9)
[2021-09-20] MEDS: Budesonide/Formoterol 160/4.5 1 PUFF INH IH SCH ×2 (07:13→19:46)
[2021-09-20 07:42] LABS: Eosinophils % 0.3 %; Mean Corpuscular Volume 103.6 fL (83.0-100.0); Red Cell Distribution Width 14.8 % (11.5-14.5)
[2021-09-20 07:44] LABS: Hematocrit 28.8 % (37.5-50.1); Hemoglobin 8.8 g/dL (12.9-16.9); Immature Granulocytes % 0.6 % (0-4); Lymphocytes # 0.4 K/mcL (0.6-4.6); Lymphocytes % 5.5 %; Mean Corpuscular HGB Conc 30.6 g/dL (31.6-35.5); Mean Corpuscular Hemoglobin 31.7 pg (28.0-33.3); Monocytes # 0.4 K/mcL (0.0-1.3); Neutrophils # 6.2 K/mcL (1.6-8.9); Red Blood Count 2.78 M/mcL (4.19-5.50); Segmented Neutrophils % 87.6 %; White Blood Count 7.1 K/mcL (4.3-11.1)
[2021-09-20] MEDS: aMILoride 5 MG TABLET PO SCH (08:13)
[2021-09-20] MEDS: Pantoprazole 40 MG VIAL IVP SCH (08:14)
[2021-09-20] MEDS: Docusate Oral Soln 100 MG/10 ML UDC GTUBE SCH ×2 (08:14→20:03)
[2021-09-20] MEDS: hydroCHLOROthiazide 25 MG TABLET GTUBE SCH (08:14)
[2021-09-20] MEDS: Insulin DETEMIR 100 UNIT/ML X5UNITS SUBQ SCH ×2 (08:15→20:03)
[2021-09-20] MEDS: Lacri-Lube 3.5 GM TUBE BOTH EYES SCH ×2 (08:22→20:15)
[2021-09-20] MEDS: Chlorhexidine Rinse 15 ML MOUTHWASH MM SCH ×2 (08:38→20:03)
[2021-09-20] MEDS ORDERED: Furosemide 20 MG/2 ML VIAL IVP ONE (10:39)
[2021-09-20] MEDS: Norepinephrine 32 MG/250 ML IV.SOLN IVC SCH (15:49)
[2021-09-20 16:55] LABS: Calcium 9.5 mg/dL (8.6-10.3); Potassium 4.7 mEq/L (3.5-5.1)
[2021-09-20] MEDS: Phenylephrine 100 MG in 0.9 % Sodium Chloride 250 ML IVC SCH (17:26)
[2021-09-20] MEDS: Divalproex Sodium 125 MG Sprinkle Capsule (DR) GTUBE SCH (20:03)
[2021-09-20] MEDS: Artificial Tears SOLN 15 ML BOTTLE BOTH EYES PRN (20:05)
[2021-09-20 20:25] LABS: Calcium 9.6 mg/dL (8.6-10.3); Potassium 4.6 mEq/L (3.5-5.1)
[2021-09-21 02:12] LABS: Basophils % 0.1 %; Eosinophils % 0.7 %; Hemoglobin 8.7 g/dL (12.9-16.9); Red Cell Distribution Width 14.6 % (11.5-14.5)
[2021-09-21 02:14] LABS: Eosinophils # 0.1 K/mcL (0.0-0.6); Hematocrit 27.5 % (37.5-50.1); Immature Granulocytes % 1.1 % (0-4); Immature Platelets 25.5 % (1.1-6.1); Lymphocytes # 0.4 K/mcL (0.6-4.6); Mean Corpuscular HGB Conc 31.6 g/dL (31.6-35.5); Mean Corpuscular Hemoglobin 31.6 pg (28.0-33.3); Monocytes # 0.4 K/mcL (0.0-1.3); Monocytes % 6.2 %; Neutrophils # 6.1 K/mcL (1.6-8.9); Red Blood Count 2.75 M/mcL (4.19-5.50); Segmented Neutrophils % 85.9 %; White Blood Count 7.1 K/mcL (4.3-11.1)
[2021-09-21 02:19] LABS: VBG Ionized Calcium 1.27 mmol/L (1.15-1.35)
[2021-09-21 02:28] LABS: Albumin 3.7 g/dL (3.5-5.7); Albumin/Globulin Ratio 1.5 (1.1-2.2); Bilirubin,Direct 0.2 mg/dL (0.0-0.2); Bilirubin,Indirect 0.5 mg/dL (0.0-1.0); Bilirubin,Total 0.7 mg/dL (0.3-1.0); Calcium 9.7 mg/dL (8.6-10.3); Globulin 2.4 g/dL (2.4-3.5); Magnesium 2.8 mg/dL (1.6-2.6); Phosphorous 4.7 mg/dL (2.7-4.5); Potassium 4.6 mEq/L (3.5-5.1); Total Protein 6.1 g/dL (6.4-8.9)
[2021-09-21] MEDS: Vancomycin 1,250 MG/262.5 ML IV.SOLN IVPB SCH (02:38)
[2021-09-21] MEDS: Insulin LISPRO 300 UNITS/3 ML VIAL SUBQ SCH ×5 (03:09→19:59)
[2021-09-21] MEDS: Acetylcysteine 10% 2 ML INHSOL IH SCH ×7 (03:42→23:13)
[2021-09-21] MEDS: Ipratropium/Albuterol Neb 3 ML IH PRN ×7 (03:42→23:12)
[2021-09-21] MEDS: Cefepime HCl 2,000 MG in 0.9 % Sodium Chloride 10 ML IVP SCH ×2 (05:01→16:14)
[2021-09-21] MEDS: *HR* Metoprolol 5 MG/5 ML VIAL IVP PRN (05:56)
[2021-09-21] MEDS: Dexmedetomidine HCl 400 MCG/100 ML MLS IVC SCH ×5 (07:22→23:44)
[2021-09-21] MEDS: FentaNYL (PF) 1,000 MCG/100 ML IV.SOLN IVC SCH ×3 (07:23→23:45)
[2021-09-21] MEDS: Insulin DETEMIR 100 UNIT/ML X5UNITS SUBQ SCH ×2 (07:24→20:01)
[2021-09-21] MEDS: Albumin 25% 25gram/100mL 25 GM/100 ML IV.SOLN IVPB SCH ×2 (07:32→16:13)
[2021-09-21] MEDS: Lacri-Lube 3.5 GM TUBE BOTH EYES SCH ×2 (07:39→20:01)
[2021-09-21] MEDS: Chlorhexidine Rinse 15 ML MOUTHWASH MM SCH ×2 (07:39→19:58)
[2021-09-21] MEDS: Docusate Oral Soln 100 MG/10 ML UDC GTUBE SCH ×2 (07:39→20:00)
[2021-09-21] MEDS: aMILoride 5 MG TABLET PO SCH (07:39)
[2021-09-21] MEDS: hydroCHLOROthiazide 25 MG TABLET GTUBE SCH (07:40)
[2021-09-21] MEDS: Pantoprazole 40 MG VIAL IVP SCH (07:40)
[2021-09-21] MEDS: Budesonide/Formoterol 160/4.5 1 PUFF INH IH SCH ×2 (07:46→19:42)
[2021-09-21 16:26] LABS: Thyroid Stimulating Hormone 0.027 mcIU/mL (0.340-5.600)
[2021-09-21] MEDS: Divalproex Sodium 125 MG Sprinkle Capsule (DR) GTUBE SCH (20:00)
[2021-09-22] MEDS: Insulin LISPRO 300 UNITS/3 ML VIAL SUBQ SCH ×5 (02:02→16:00)
[2021-09-22] MEDS: Acetylcysteine 10% 2 ML INHSOL IH SCH ×4 (03:11→15:03)
[2021-09-22] MEDS: Ipratropium/Albuterol Neb 3 ML IH PRN ×4 (03:12→15:03)
[2021-09-22 03:47] LABS: ABG Base Excess 4 mEq/L (-2 to 3); ABG HCO3 31 mEq/L (21-27); ABG Oxygen Saturation 91 % (95-98); ABG PCO2 62 mmHg (35-45); ABG PO2 70 mmHg (85-104); ABG TCO2 33 mEq/L (20-26); Blood Gas VT 450 cc
[2021-09-22] MEDS: Cefepime HCl 2,000 MG in 0.9 % Sodium Chloride 10 ML IVP SCH ×2 (05:39→17:08)
[2021-09-22 06:54] LABS: VBG Ionized Calcium 1.09 mmol/L (1.15-1.35)
[2021-09-22 07:05] LABS: Hemoglobin 8.1 g/dL (12.9-16.9); Immature Granulocytes % 0.7 % (0-4)
[2021-09-22 07:07] LABS: Basophils % 0.2 %; Eosinophils % 0.5 %; Hematocrit 26.9 % (37.5-50.1); Lymphocytes # 0.6 K/mcL (0.6-4.6); Lymphocytes % 9.8 %; Mean Corpuscular HGB Conc 30.1 g/dL (31.6-35.5); Mean Corpuscular Hemoglobin 31.9 pg (28.0-33.3); Mean Corpuscular Volume 105.9 fL (83.0-100.0); Monocytes # 0.5 K/mcL (0.0-1.3); Monocytes % 7.3 %; Nucleated Red Blood Cells 0.3 /100 WBC (0); Red Blood Count 2.54 M/mcL (4.19-5.50); Red Cell Distribution Width 15.6 % (11.5-14.5); Segmented Neutrophils % 81.5 %; White Blood Count 6.1 K/mcL (4.3-11.1)
[2021-09-22] MEDS: Budesonide/Formoterol 160/4.5 1 PUFF INH IH SCH (07:17)
[2021-09-22] MEDS: Insulin DETEMIR 100 UNIT/ML X5UNITS SUBQ SCH (07:52)
[2021-09-22] MEDS: aMILoride 5 MG TABLET PO SCH (07:52)
[2021-09-22] MEDS: Pantoprazole 40 MG VIAL IVP SCH (07:52)
[2021-09-22] MEDS: Lacri-Lube 3.5 GM TUBE BOTH EYES SCH (07:53)
[2021-09-22] MEDS: Chlorhexidine Rinse 15 ML MOUTHWASH MM SCH (07:53)
[2021-09-22] MEDS: Docusate Oral Soln 100 MG/10 ML UDC GTUBE SCH (07:53)
[2021-09-22] MEDS ORDERED: hydroCHLOROthiazide 25 MG TABLET GTUBE SCH (09:00)
[2021-09-22] MEDS: Dexmedetomidine HCl 400 MCG/100 ML MLS IVC SCH ×2 (09:20→15:18)
[2021-09-22 10:36] LABS: Albumin 3.5 g/dL (3.5-5.7); Albumin/Globulin Ratio 1.5 (1.1-2.2); Bilirubin,Direct 0.1 mg/dL (0.0-0.2); Bilirubin,Indirect 0.5 mg/dL (0.0-1.0); Bilirubin,Total 0.6 mg/dL (0.3-1.0); Calcium 9.5 mg/dL (8.6-10.3); Globulin 2.4 g/dL (2.4-3.5); Phosphorous 5.8 mg/dL (2.7-4.5); Potassium 6.4 mEq/L (3.5-5.1); Total Protein 5.9 g/dL (6.4-8.9)
[2021-09-22] MEDS: FentaNYL (PF) 1,000 MCG/100 ML IV.SOLN IVC SCH (10:47)
[2021-09-22] MEDS: Norepinephrine 32 MG/250 ML IV.SOLN IVC SCH (11:42)
[2021-09-22] MEDS ORDERED: Norepinephrine 32 MG in 0.9 % Sodium Chloride 218 ML IVC SCH (12:00)
[2021-09-22] MEDS ORDERED: Lidocaine -MPF 1% 5 ML AMPUL INFILT ONE (12:29)
[2021-09-22 12:34] LABS: Mean Platelet Volume 12.2 fL (9.4-12.4)
[2021-09-22] MEDS ORDERED: Insulin Human Regular 10 UNIT in 0.9 % Sodium Chloride 10 ML IV ONE (13:13)
[2021-09-22] MEDS ORDERED: *HR* Dextrose 50 % in Water (Syg) 50 ML SYRINGE IVP PRN (13:13)
[2021-09-22] MEDS ORDERED: *HR* Dextrose 50 % in Water (Syg) 50 ML SYRINGE IVP STA (13:15)
[2021-09-22] MEDS ORDERED: SODIUM ZIRCONIUM CYCLOSILICATE 5 GM POWD.PACK PO SCH (13:30)
[2021-09-22 15:55] VITALS: TEMP 97.7
[2021-09-22 18:02] VITALS: BP 91/59; PULSE 96; O2SAT 97
[2021-09-22] MEDS ORDERED: Insulin DETEMIR 100 UNIT/ML X5UNITS SUBQ SCH (21:00)
== END 2021-09-22 19:28 | disposition short-term general hospital (02) | DRG 870 ==
LOC: 3NENU 17:23 → EMEROOARM 17:23 → ICNU 21:25 → 3NENU 21:36 → ICNU 09-08 15:34 → UNDODISIN 09-20 14:47
PROVIDERS: ADMIT Internal Medicine; ATTEND Internal Medicine